=== PATIENT | male | born 1950 | race Caucasian/White ===

== ENCOUNTER → 2017-06-02 | Outpatient (CLI) | payer MEDICARE, OTHER ==
[~2017-06-02] MED LIST: ASPI81CH PO; ERGO400 PO; LOSA25 PO; SIMV10 PO; TADA10TA PO; TAMS.4ER PO; WARF7.5 PO
== END ==
LOC: PLD 07:07
DX: R31.0 Gross hematuria (principal)
CPT/HCPCS: 88108

== ENCOUNTER 2017-06-05 10:09 | Day surgery (SDC) | payer MEDICARE, OTHER ==
[~2017-06-05] VITALS: Ht 180.3 cm; Wt 98.4 kg
== END 2017-06-05 23:51 | disposition home or self-care (01) ==
LOC: ORSCMMR 10:09
PROVIDERS: Surgery
PROC: 0DJD8ZZ Inspection of Lower Intestinal Tract, Via Natural or Artificial Opening Endoscopic (ICD-10-PCS; principal; 2017-06-05 11:45)
DX: R19.5 Other fecal abnormalities (principal); K64.8 Other hemorrhoids; G47.33 Obstructive sleep apnea (adult) (pediatric); K57.30 Diverticulosis of large intestine without perforation or abscess without bleeding; I10 Essential (primary) hypertension; E78.5 Hyperlipidemia, unspecified; I35.0 Nonrheumatic aortic (valve) stenosis; Z79.01 Long term (current) use of anticoagulants; Z79.82 Long term (current) use of aspirin; Z79.899 Other long term (current) drug therapy
CPT/HCPCS: J2250; J7120

== ENCOUNTER 2018-06-13 14:47 | Emergency (ER) | payer MEDICARE, OTHER ==
[~2018-06-13] VITALS: Ht 180.3 cm; Wt 99.8 kg
[2018-06-13 15:16] LABS: BASOPHILS ABSOLUTE AUTO 0.05 K/mm3 (0.00-0.23); BASOPHILS PERCENT AUTO 1 % (0-2); EOSINOPHILS ABSOLUTE AUTO 0.17 K/mm3 (0.00-0.68); EOSINOPHILS PERCENT AUTO 3 % (0-6); Hematocrit 41.4 % (37.0-53.0); Hemoglobin 14.1 g/dL (13.5-17.5); IMMATURE GRAN ABSOLUTE AUTO 0.01 K/mm3 (0.00-0.10); IMMATURE GRAN PERCENT AUTO 0 % (0-1); LYMPHOCYTES ABSOLUTE AUTO 1.54 K/mm3 (0.84-5.20); LYMPHOCYTES PERCENT AUTO 25 % (21-46); MONOCYTES ABSOLUTE AUTO 0.35 K/mm3 (0.16-1.47); MONOCYTES PERCENT AUTO 6 % (4-13); Mean Corpuscular HGB 31.6 pg (26.0-34.0); Mean Corpuscular HGB Conc 34.1 g/dL (31.5-36.5); Mean Corpuscular Volume 93 fL (80-100); Mean Platelet Volume 11.3 fL (9.1-12.4); NEUTROPHILS ABSOLUTE AUTO 4.14 K/mm3 (1.96-9.15); NEUTROPHILS PERCENT AUTO 66 % (41-73); Platelet Count 155 K/mm3 (150-400); RDW Coefficient Variation 13.2 % (11.7-14.2); RDW Standard Deviation 45.3 fL (35.1-46.3); Red Blood Cell Count 4.46 M/mm3 (4.30-5.90); White Blood Cell Count 6.26 K/mm3 (4.00-11.30)
[2018-06-13] MEDS ORDERED: FINA5 PO (15:40)
[2018-06-13 15:41] LABS: Alanine Aminotransfer (ALT/SGP 19 U/L (12-78); Albumin, Blood 3.7 g/dL (3.4-5.0); Albumin/Globulin Ratio 1.2 (0.8-1.8); Alk Phos 62 U/L (50-136); Anion Gap 7 mmol/L (6-16); Aspartate Aminotrans (AST/SGOT 18 U/L (12-37); Bilirubin, Total 0.5 mg/dL (0.1-1.0); Blood Urea Nitrogen 14 mg/dL (8-24); Bun/Creatinine Ratio 15.6 (12.0-20.0); CO2, Blood 28 mmol/L (21-32); Calcium, Blood 8.3 mg/dL (8.5-10.1); Chloride, Blood 108 mmol/L (98-108); Glomerular Filtration Rate >60 (60-); Glucose, Blood 120 mg/dL (70-99); Potassium, Blood 3.8 mmol/L (3.5-5.5); Sodium, Blood 143 mmol/L (136-145); Total Protein, Blood 6.7 g/dL (6.4-8.2); Troponin I <0.015 ng/mL (0.000-0.040)
[2018-06-13] MEDS ORDERED: Protonix40 MG PO (17:40)
== END 2018-06-13 18:00 | disposition home or self-care (01) ==
LOC: ER 14:47
PROVIDERS: Physician Assistant
DX: R10.13 Epigastric pain (principal); Z79.82 Long term (current) use of aspirin; Z79.01 Long term (current) use of anticoagulants; Z79.899 Other long term (current) drug therapy; I10 Essential (primary) hypertension; E78.5 Hyperlipidemia, unspecified; Z87.891 Personal history of nicotine dependence
CPT/HCPCS: 36415; 71046; 80053; 84484; 85025; 93005; 93010; 96374; 96375; 96376; 99284-25; C9113; J0780; J1200; J2060; J2405

== ENCOUNTER 2018-06-17 10:03 | Emergency (ER) | payer MEDICARE, OTHER ==
[~2018-06-17] VITALS: Ht 180.3 cm; Wt 99.8 kg
[~2018-06-17 10:03] MED LIST changes: +FINA5 PO; +Protonix40 MG PO
[2018-06-17 10:37] LABS: BASOPHILS ABSOLUTE AUTO 0.05 K/mm3 (0.00-0.23); BASOPHILS PERCENT AUTO 0 % (0-2); EOSINOPHILS ABSOLUTE AUTO 0.22 K/mm3 (0.00-0.68); EOSINOPHILS PERCENT AUTO 2 % (0-6); Hematocrit 41.8 % (37.0-53.0); Hemoglobin 14.3 g/dL (13.5-17.5); IMMATURE GRAN ABSOLUTE AUTO 0.05 K/mm3 (0.00-0.10); IMMATURE GRAN PERCENT AUTO 0 % (0-1); LYMPHOCYTES ABSOLUTE AUTO 1.17 K/mm3 (0.84-5.20); LYMPHOCYTES PERCENT AUTO 10 % (21-46); MONOCYTES ABSOLUTE AUTO 1.51 K/mm3 (0.16-1.47); MONOCYTES PERCENT AUTO 12 % (4-13); Mean Corpuscular HGB 31.6 pg (26.0-34.0); Mean Corpuscular HGB Conc 34.2 g/dL (31.5-36.5); Mean Corpuscular Volume 93 fL (80-100); Mean Platelet Volume 11.5 fL (9.1-12.4); NEUTROPHILS ABSOLUTE AUTO 9.26 K/mm3 (1.96-9.15); NEUTROPHILS PERCENT AUTO 76 % (41-73); Platelet Count 176 K/mm3 (150-400); RDW Coefficient Variation 13.3 % (11.7-14.2); RDW Standard Deviation 45.2 fL (35.1-46.3); Red Blood Cell Count 4.52 M/mm3 (4.30-5.90); White Blood Cell Count 12.26 K/mm3 (4.00-11.30)
[2018-06-17 10:54] LABS: Alanine Aminotransfer (ALT/SGP 28 U/L (12-78); Albumin, Blood 3.3 g/dL (3.4-5.0); Albumin/Globulin Ratio 0.8 (0.8-1.8); Alk Phos 57 U/L (50-136); Anion Gap 9 mmol/L (6-16); Aspartate Aminotrans (AST/SGOT 15 U/L (12-37); Bilirubin, Total 0.8 mg/dL (0.1-1.0); Blood Urea Nitrogen 21 mg/dL (8-24); Bun/Creatinine Ratio 20.4 (12.0-20.0); CO2, Blood 24 mmol/L (21-32); Calcium, Blood 8.4 mg/dL (8.5-10.1); Chloride, Blood 101 mmol/L (98-108); Creatinine, Blood 1.03 mg/dL (0.60-1.20); Globulin, Blood 3.9 g/dL (2.2-4.0); Glomerular Filtration Rate >60 (60-); Glucose, Blood 107 mg/dL (70-99); Potassium, Blood 3.9 mmol/L (3.5-5.5); Sodium, Blood 134 mmol/L (136-145); Total Protein, Blood 7.2 g/dL (6.4-8.2)
== END 2018-06-17 13:00 | disposition short-term general hospital (02) ==
LOC: ER 10:03
PROVIDERS: Emergency Medicine
DX: I71.02 Dissection of abdominal aorta (principal); I10 Essential (primary) hypertension; E78.5 Hyperlipidemia, unspecified; Z87.891 Personal history of nicotine dependence; Z79.899 Other long term (current) drug therapy; Z79.82 Long term (current) use of aspirin; Z79.01 Long term (current) use of anticoagulants
CPT/HCPCS: 36415; 71275; 74177; 80053; 83690; 85025; 93005; 93010; 96361; 96365; 96375; 99285-25; J2405; J3010; J7030; Q9967

== ENCOUNTER 2018-07-14 09:18 | Emergency (ER) | payer MEDICARE, OTHER ==
[~2018-07-14] VITALS: Ht 180.3 cm; Wt 104.3 kg
[~2018-07-14 09:18] MED LIST changes: -AMLO10 PO; -Amox Tr-K Clv1 EAC2 PO; -CLOP75 PO; -ENOX100I SC; -HYDR100 PO; -Lasix40 MG PO; -MELA3 PO; -METO100ER PO; -OXYC5 PO; -TRAZ50 PO
[2018-07-14] MEDS ORDERED: HYDR100 PO (10:44)
[2018-07-14] MEDS ORDERED: METO100ER PO (10:45)
[2018-07-14] MEDS ORDERED: MELA3 PO (10:45)
[2018-07-14] MEDS ORDERED: AMLO10 PO (10:45)
[2018-07-14] MEDS ORDERED: OXYC5 PO (10:45)
[2018-07-14] MEDS ORDERED: Amox Tr-K Clv1 EAC2 PO (10:46)
[2018-07-14] MEDS ORDERED: TRAZ50 PO (10:46)
[2018-07-14] MEDS ORDERED: ENOX100I SC (10:47)
[2018-07-14] MEDS ORDERED: CLOP75 PO (10:47)
[2018-07-14 10:53] LABS: BASOPHILS ABSOLUTE AUTO 0.06 K/mm3 (0.00-0.23); BASOPHILS PERCENT AUTO 1 % (0-2); EOSINOPHILS ABSOLUTE AUTO 0.34 K/mm3 (0.00-0.68); EOSINOPHILS PERCENT AUTO 3 % (0-6); Hematocrit 27.5 % (37.0-53.0); Hemoglobin 9.1 g/dL (13.5-17.5); IMMATURE GRAN ABSOLUTE AUTO 0.17 K/mm3 (0.00-0.10); IMMATURE GRAN PERCENT AUTO 2 % (0-1); LYMPHOCYTES ABSOLUTE AUTO 1.06 K/mm3 (0.84-5.20); LYMPHOCYTES PERCENT AUTO 11 % (21-46); MONOCYTES ABSOLUTE AUTO 0.86 K/mm3 (0.16-1.47); MONOCYTES PERCENT AUTO 9 % (4-13); Mean Corpuscular HGB 30.6 pg (26.0-34.0); Mean Corpuscular HGB Conc 33.1 g/dL (31.5-36.5); Mean Corpuscular Volume 93 fL (80-100); Mean Platelet Volume 11.1 fL (9.1-12.4); NEUTROPHILS ABSOLUTE AUTO 7.64 K/mm3 (1.96-9.15); NEUTROPHILS PERCENT AUTO 75 % (41-73); Platelet Count 224 K/mm3 (150-400); RDW Coefficient Variation 13.7 % (11.7-14.2); RDW Standard Deviation 46.8 fL (35.1-46.3); Red Blood Cell Count 2.97 M/mm3 (4.30-5.90); White Blood Cell Count 10.13 K/mm3 (4.00-11.30)
[2018-07-14 11:09] LABS: International Normalized Ratio 2.17; Prothrombin Time Results 21.4 Sec (9.7-11.5)
[2018-07-14 11:25] LABS: Anion Gap 7 mmol/L (6-16); Blood Urea Nitrogen 21 mg/dL (8-24); Bun/Creatinine Ratio 16.9 (12.0-20.0); CO2, Blood 23 mmol/L (21-32); Calcium, Blood 8.2 mg/dL (8.5-10.1); Chloride, Blood 110 mmol/L (98-108); Creatinine, Blood 1.24 mg/dL (0.60-1.20); Glomerular Filtration Rate >60 (60-); Glucose, Blood 102 mg/dL (70-99); Magnesium, Blood 2.5 mg/dL (1.6-2.4); Potassium, Blood 4.2 mmol/L (3.5-5.5); Sodium, Blood 140 mmol/L (136-145)
[2018-07-14] MEDS ORDERED: Lasix40 MG PO (11:36)
== END 2018-07-14 12:16 | disposition home or self-care (01) ==
LOC: ER 09:18
PROVIDERS: Emergency Medicine
DX: I11.0 Hypertensive heart disease with heart failure (principal); I50.9 Heart failure, unspecified; E78.5 Hyperlipidemia, unspecified; Z95.2 Presence of prosthetic heart valve; Z98.890 Other specified postprocedural states; Z79.82 Long term (current) use of aspirin; Z79.01 Long term (current) use of anticoagulants; Z79.899 Other long term (current) drug therapy
CPT/HCPCS: 36415; 71046; 80048; 83735; 85025; 85610; 85730; 96374; 99285-25; J1940

== ENCOUNTER → 2018-07-14 | Outpatient (CLI) | payer MEDICARE, OTHER ==
[~2018-07-14] MED LIST changes: +AMLO10 PO; +Amox Tr-K Clv1 EAC2 PO; +CLOP75 PO; +ENOX100I SC; +HYDR100 PO; +Lasix40 MG PO; +MELA3 PO; +METO100ER PO; +OXYC5 PO; +TRAZ50 PO
[2018-07-14 18:19] LABS: Percent Saturation 16.6 % (20.0-50.0)
== END | disposition home or self-care (01) ==
LOC: LAB 17:33 → LAB SHORT 17:33
DX: D64.9 Anemia, unspecified (principal)
CPT/HCPCS: 82728; 83540; 83550

== ENCOUNTER 2019-01-28 12:57 | Inpatient (IN) | payer MEDICARE, OTHER ==
[~2019-01-28] VITALS: Ht 180.3 cm; Wt 109.2 kg
[~2019-01-28 12:57] MED LIST changes: +Amox Tr-K Clv1 EAC2 PO; +ENOX100I SC; -FINA5 PO; +Lasix40 MG PO; +MELA3 PO; +OXYC5 PO; +TRAZ50 PO; -WARF7.5 PO
[2019-01-28 13:56] LABS: International Normalized Ratio 2.32; Prothrombin Time Results 22.8 Sec (9.7-11.5)
[2019-01-28 14:01] LABS: BASOPHILS ABSOLUTE AUTO 0.04 K/mm3 (0.00-0.23); BASOPHILS PERCENT AUTO 0 % (0-2); EOSINOPHILS ABSOLUTE AUTO 0.04 K/mm3 (0.00-0.68); EOSINOPHILS PERCENT AUTO 0 % (0-6); Hematocrit 32.2 % (37.0-53.0); IMMATURE GRAN ABSOLUTE AUTO 0.15 K/mm3 (0.00-0.10); IMMATURE GRAN PERCENT AUTO 1 % (0-1); LYMPHOCYTES ABSOLUTE AUTO 0.76 K/mm3 (0.84-5.20); LYMPHOCYTES PERCENT AUTO 4 % (21-46); MONOCYTES ABSOLUTE AUTO 1.75 K/mm3 (0.16-1.47); MONOCYTES PERCENT AUTO 9 % (4-13); Mean Corpuscular HGB 31.2 pg (26.0-34.0); Mean Corpuscular HGB Conc 34.2 g/dL (31.5-36.5); Mean Corpuscular Volume 91 fL (80-100); NEUTROPHILS ABSOLUTE AUTO 17.35 K/mm3 (1.96-9.15); NEUTROPHILS PERCENT AUTO 86 % (41-73); RDW Coefficient Variation 14.5 % (11.7-14.2); RDW Standard Deviation 48.3 fL (35.1-46.3); Red Blood Cell Count 3.53 M/mm3 (4.30-5.90); White Blood Cell Count 20.09 K/mm3 (4.00-11.30)
[2019-01-28 14:03] LABS: Albumin, Blood 3.6 g/dL (3.4-5.0); Albumin/Globulin Ratio 1.1 (0.8-1.8); Calcium, Blood 8.7 mg/dL (8.5-10.1); Creatinine, Blood 1.27 mg/dL (0.60-1.20); Globulin, Blood 3.3 g/dL (2.2-4.0); Potassium, Blood 4.1 mmol/L (3.5-5.5); Total Protein, Blood 6.9 g/dL (6.4-8.2)
[2019-01-28 14:25] LABS: Troponin I 13.3 ng/mL (0.000-0.040)
[2019-01-28 14:29] LABS: Platelet Count 88 K/mm3 (150-400)
[2019-01-28] MEDS ORDERED: WARF7.5 PO (15:12)
[2019-01-28] MEDS ORDERED: METO50ER PO (15:13)
[2019-01-28] MEDS ORDERED: Flomax0.4 MG PO (15:14)
[2019-01-28] MEDS ORDERED: LOSARTAN POTASS50 MG PO (15:15)
[2019-01-28] MEDS ORDERED: FUROSEMIDE20 MG PO (15:15)
[2019-01-28] MEDS ORDERED: ATORVASTATIN CA20 MG PO (15:16)
[2019-01-28] MEDS ORDERED: HYDR100 PO (15:18)
[2019-01-28] MEDS ORDERED: FINA5 PO (15:18)
[2019-01-28] MEDS ORDERED: AMLO10 PO (15:19)
[2019-01-28] MEDS ORDERED: CLOP75 PO (15:19)
[2019-01-28] MEDS ORDERED: PANT40 PO (15:21)
[2019-01-28 20:26] LABS: Source, Urine Catheter
[2019-01-28 20:29] LABS: Bilirubin, Urine Neg (Neg); Blood, Urine Neg (Neg); Glucose Qualitative, Urine Neg (Neg); Ketones, Urine Neg (Neg); Leukocyte Esterase, Urine 1+ (Neg); Nitrite, Urine Neg (Neg); Protein, Urine 2+ (Neg); Urobilinogen, Urine NORM (Normal)
[2019-01-28 20:34] LABS: Influenza A Negative (NEGATIVE); Influenza B Negative (NEGATIVE)
[2019-01-28 20:34] LABS: Appearance, Urine Clear (Clear); Color, Urine Yellow (P-Yellow)
[2019-01-28 20:35] LABS: Bacteria Mod /hpf; Mucus Light (0-Heavy); Red Blood Cells, Urine Not Seen /hpf (0-2); Squamous Epithelial Cells Few /hpf (Few); White Blood Cells, Urine 0-2 /hpf (0-5)
[2019-01-28 22:55] LABS: Troponin I 7.83 ng/mL (0.000-0.040)
--- NOTE | 2019-01-28 23:30 | NUR ---
PT ARRIVED ON UNIT VIA STRETCHER FROM ER; ASSUMED CARE FROM SARI NORMAN. PT ADMITTED TO UNIT FOR POSSIBLE ENDOCARDITIS WITH UNKNOWN ORIGIN/SOURCE OF INFECTION. 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 PT IS ALERT AND ORIENTED; ABLE TO MAKE NEEDS KNOWN. DENIES ANY PAIN; HOWEVER, PT NOTED TO BE SOB WITH INSPIRATORY WHEEZES NOTED AFTER TRANSFER FROM STRETCHER TO BED. BNP NOTED TO BE ELEVATED; THEREFORE, IV FLUIDS HELD AT THIS TIME. WILL PLACE CALL TO DR. VALLE. 2L VIA DC AT THIS TIME; DENIES OXYGEN USE AT HOME. STATES PT DID A SLEEP STUDY; HOWEVER, WAS UNABLE TO WEAR MASK D/T DEVIATED SEPTUM. THEREFORE, SHE STATES THEY ARE TRYING TO WORK WITH [facility] TO SEE ABOUT OTHER OPTIONS FOR PT'S ERVIN. PT IS NOTED TO BE BRADYCARDIC WITH INVERTED T WAVES; CALL PLACED TO DR. AVILEZ IN REGARDS TO INVERTED T WAVES BEING NEW AND NOT NOTED ON EKG THAT WAS OBTAINED IN ER EARLIER IN THE DAY; AWAITING CALL BACK. PT IS NOTED TO HAVE A SYSTOLIC MURMUR WITH A CLICK; BEST HEARD OVER 2ND RIGHT INTERCOSTAL SPACE. HR 50'S. ABDOMEN IS ROUND AND DISTENDED, BUT NORMAL FOR PT; ACTIVE BTX4. DENIES ANY DIARRHEA OR CONSTIPATION. CONTINENT OF BOTH BOWEL AND BLADDER. NO EDEMA NOTED. CALL LIGHT LEFT WITHIN REACH. WILL CONTINUE TO MONITOR FOR SIGNIFICANT CHANGES AND REPORT TO PHYSICIAN ACCORDINGLY.
--- NOTE | 2019-01-28 23:37 | NUR ---
SPOKE WITH DR. VALLE IN REGARDS TO CRITICAL LAB RESULT, ELEVATED BNP WITH PT'S WHEEZING AND SOB. ORDERS TO HOLD NS AT 75MLS/HR.
--- NOTE | 2019-01-29 00:47 | NUR ---
DR. AVILEZ CALLED BACK IN REGARDS TO INVERTED T WAVES. PT IS ASYMPTOMATIC AT THIS TIME; NEW ORDERS TO MAKE NPO AFTER MIDNIGHT AND SHE WILL BE BY TO SEE HIM IN THE MORNING.
--- NOTE | 2019-01-29 05:56 | NUR ---
END OF SHIFT SUMMARY PT HAS SLEPT MOST OF NIGHT. VERY PLEASANT AND COOPERATIVE WITH CARE. DENIED ANY CHEST PAIN, SOB, WELL ANY N/V T/O NIGHT. NSR WITH T WAVE INVERSION NOTED TO RHYTHM STRIP; DR. AVILEZ AWARE, SEE EARLIER NOTE. LUNG SOUNDS CLEAR/DIMINISHED T/O WITH ONE EPISODE OF INSPIRATORY WHEEZING UPON ASSUMPTION OF CARE WHEN PT BECAME SOB TRANSFERRING TO BED. PT HAS REMAINED SL ALL SHIFT WITH VANCO ADMINISTERED PER ORDERS. CONTINENT OF BLADDER; VOIDING ADEQUATELY IN URINAL. VITAL SIGNS HAVE REMAINED STABLE T/O SHIFT; TEMPERATURE MAX OF 100.9 ORALLY PT IS DIAPHORETIC TO FOREHEAD; PT HAS BEEN LABILE WITH TEMPERATURES T/O SHIFT, SEE DOCUMENTATION. CALL LIGHT LEFT WITHIN REACH; PT ABLE TO MAKE HIS NEEDS KNOWN. WILL CONTINUE TO MONITOR UNTIL REPORT IS HANDED OFF TO ONCOMING RN.
[2019-01-29 06:35] LABS: BASOPHILS ABSOLUTE AUTO 0.05 K/mm3 (0.00-0.23); BASOPHILS PERCENT AUTO 0 % (0-2); EOSINOPHILS ABSOLUTE AUTO 0.04 K/mm3 (0.00-0.68); EOSINOPHILS PERCENT AUTO 0 % (0-6); Hematocrit 31.6 % (37.0-53.0); Hemoglobin 10.7 g/dL (13.5-17.5); IMMATURE GRAN ABSOLUTE AUTO 0.09 K/mm3 (0.00-0.10); IMMATURE GRAN PERCENT AUTO 0 % (0-1); LYMPHOCYTES PERCENT AUTO 5 % (21-46); MONOCYTES ABSOLUTE AUTO 1.95 K/mm3 (0.16-1.47); MONOCYTES PERCENT AUTO 10 % (4-13); Mean Corpuscular HGB 30.6 pg (26.0-34.0); Mean Corpuscular HGB Conc 33.9 g/dL (31.5-36.5); Mean Corpuscular Volume 90 fL (80-100); Mean Platelet Volume 11.3 fL (9.1-12.4); NEUTROPHILS ABSOLUTE AUTO 17.07 K/mm3 (1.96-9.15); NEUTROPHILS PERCENT AUTO 84 % (41-73); Platelet Count 73 K/mm3 (150-400); RDW Coefficient Variation 14.6 % (11.7-14.2); RDW Standard Deviation 48.2 fL (35.1-46.3)
[2019-01-29 07:18] LABS: Alanine Aminotransfer (ALT/SGP 22 U/L (12-78); Alk Phos 53 U/L (50-136); Anion Gap 9 mmol/L (6-16); Aspartate Aminotrans (AST/SGOT 36 U/L (12-37); Bilirubin, Total 0.7 mg/dL (0.1-1.0); Blood Urea Nitrogen 31 mg/dL (8-24); Bun/Creatinine Ratio 26.1 (12.0-20.0); CO2, Blood 22 mmol/L (21-32); Calcium, Blood 8.2 mg/dL (8.5-10.1); Chloride, Blood 108 mmol/L (98-108); Creatinine, Blood 1.19 mg/dL (0.60-1.20); Globulin, Blood 3.1 g/dL (2.2-4.0); Glomerular Filtration Rate >60 (60-); Glucose, Blood 113 mg/dL (70-99); Potassium, Blood 3.9 mmol/L (3.5-5.5); Sodium, Blood 139 mmol/L (136-145); Total Protein, Blood 6.1 g/dL (6.4-8.2)
[2019-01-29 07:23] LABS: Creatine Kinase MB 7.3 ng/mL (0.0-3.6); Creatine Kinase MB Index 2.4 (0.0-4.0)
[2019-01-29 07:36] LABS: Troponin I 6.8 ng/mL (0.000-0.040)
[2019-01-29 07:56] LABS: International Normalized Ratio 2.4; Prothrombin Time Results 23.5 Sec (9.7-11.5)
--- NOTE | 2019-01-29 08:10 | NUR ---
ASSUMED CARE: RECEIVED REPORT FROM NOC RN. PT AWAKE UPON ENTERING THE ROOM. PT IS BREATHING APPEARS TO BE HEARD FROM ACROSS THE ROOM SOUNDING VERY TIGHT AND APPEARS WORK OF BREATHING TO BE ELAVATED. PT DENEIS FEELING DIFFICULTY BREATHING. LUNG SOUNDS ARE VERY COURSE T/O ON THE LEFT SIDE. PT AT FIRST DENIED ANY CHEST PAIN OR PRESSURE UPON FURTHER ASSESSMENT PT C/O FEELING OF TIGHTNESS. EDUCATED PT ON CALLING IF TIGHTNESS INCREASES, CHANGES OR RADIATES. PT DENIES ANY SWELLING IN BLE, NONE NOTED ON ASSESSMENT. WILL CONTINUE TO MONITOR AND ASSESS FURTHER. CALL LIGHT IN REACH. BED IN LOWEST POSSITION. PT NPO AT THIS TIME.
--- NOTE | 2019-01-29 08:47 | NUR ---
DR AVILEZ IN ROOM: IN ROOM ASSESSING PT AT THIS BIRDIE. UPDATE ON PT CARE. D/T HIGH INR PT WILL NOT BE GOING TO THE [facility] TODAY, BUT WILL BEING DOING A SHAHZAD AT THE BEDSIDE.
--- NOTE | 2019-01-29 11:00 | NUR ---
SHAHZAD AT BEDSIDE: PHYSICIANS ASSISTANT ARIVED TO THE ROOM AND PREPARED THE PT FOR SHAHZAD. STARTED NS @ TKO IN ORDER TO HAVE CLOSER ACCESS FOR IV MEDICATION ADMINISTRATION. 2 VIALS @ 100MCG EA OF FENTANYL AND 3 VIALS @ 2MG OF VERSED WAS PULLED FROM PIXIS PRIOR TO PROCEDURE IN PREPARATION OF PROCEDURE. RT CALLED TO THE ROOM FOR STANDBY. PT VSS PRIOR TO BEGINNING PROCEDURE. 1019: DR AVILEZ ARIVED TO THE ROOM 1021: TIME OUT DONE BY THIS RN. 1023: MEDICATIONS ADMINISTERED 2MG OF VERSED AND 50MCG OF FENTANYL PER DR AVILEZ VERBAL ORDER. ADMINISTERED WITH REPEAT BACK COMMUNICATION. FLUSHED WITH 10ML NS 1026: DR INSERTED SCOPE 1038: SCOPE WITHDRAWN 1042: PT AROUSABLE AND ANSWERING QUESTIONS. AFTER PROCEDURE FENTANYL 150MCG WASTED WITH MONE BARGER RN 3 VIALS RETURNED VIA PIXIS, BUT 1 VIAL 2MG WAS ADMINISTERED NOTED ABOVE. 2 VIALS WERE PLACED IN THE RETURN BIN OF THE PIXIS. WITNESSED BY MONE BARGER RN AND NGOC BRITTON RN.
[2019-01-29 15:02] LABS: Creatine Kinase MB 6.3 ng/mL (0.0-3.6); Creatine Kinase MB Index 2.6 (0.0-4.0)
[2019-01-29 15:31] LABS: Troponin I 3.74 ng/mL (0.000-0.040)
--- NOTE | 2019-01-29 18:33 | NUR ---
SHIFT SUMMARY: PT TRANSFERED TO PCU THIS SHIFT. A/O T/O THE SHIFT NO C/O PAIN, TIGHTNESS OR PRESSURE SINCE THIS MORNING. NUMEROUS FAMILY HAS BEEN IN TO SEE PT. PT HAS BEEN SLEEPING OFF AND ON T/O THE DAY. VSS. PT TRANSFERED TO THE PCU BED BY STANDING WITH SBA. NO S/S OF DISTRESS WITH TRANSFER. WILL CONTINUE TO MONITOR AND REPORT TO ONCOMING RN. CALL LIGHT IN REACH. BED IN LOWEST POSSITION.
--- NOTE | 2019-01-29 19:20 | NUR ---
ASSUMED CARE OF PT, BEDSIDE REPORT RECEIVED. PT IS RESTING QUIETLY RECLINING IN BED AND VISITING WITH VISITOR AT BEDSIDE, DENIES NEEDS AT THIS TIME.
[2019-01-30 05:10] LABS: BASOPHILS ABSOLUTE AUTO 0.05 K/mm3 (0.00-0.23); BASOPHILS PERCENT AUTO 0 % (0-2); EOSINOPHILS ABSOLUTE AUTO 0.02 K/mm3 (0.00-0.68); EOSINOPHILS PERCENT AUTO 0 % (0-6); Hematocrit 31.6 % (37.0-53.0); Hemoglobin 10.2 g/dL (13.5-17.5); IMMATURE GRAN ABSOLUTE AUTO 0.06 K/mm3 (0.00-0.10); IMMATURE GRAN PERCENT AUTO 0 % (0-1); LYMPHOCYTES ABSOLUTE AUTO 1.18 K/mm3 (0.84-5.20); LYMPHOCYTES PERCENT AUTO 8 % (21-46); MONOCYTES ABSOLUTE AUTO 1.48 K/mm3 (0.16-1.47); MONOCYTES PERCENT AUTO 10 % (4-13); Mean Corpuscular HGB 30.4 pg (26.0-34.0); Mean Corpuscular HGB Conc 32.3 g/dL (31.5-36.5); Mean Platelet Volume 12.5 fL (9.1-12.4); NEUTROPHILS ABSOLUTE AUTO 11.89 K/mm3 (1.96-9.15); NEUTROPHILS PERCENT AUTO 81 % (41-73); Platelet Count 68 K/mm3 (150-400); RDW Coefficient Variation 14.5 % (11.7-14.2); RDW Standard Deviation 50.6 fL (35.1-46.3); Red Blood Cell Count 3.36 M/mm3 (4.30-5.90); White Blood Cell Count 14.68 K/mm3 (4.00-11.30)
[2019-01-30 05:22] LABS: International Normalized Ratio 3.06; Prothrombin Time Results 29.3 Sec (9.7-11.5)
[2019-01-30 05:24] LABS: C-REACTIVE PROTEIN, EXT RANGE 18.5 mg/dL (0.000-0.300)
[2019-01-30 05:25] LABS: Albumin, Blood 2.7 g/dL (3.4-5.0); Albumin/Globulin Ratio 0.9 (0.8-1.8); Bilirubin, Total 0.4 mg/dL (0.1-1.0); Bun/Creatinine Ratio 22.8 (12.0-20.0); Creatinine, Blood 1.62 mg/dL (0.60-1.20); Globulin, Blood 3.1 g/dL (2.2-4.0); Potassium, Blood 4.3 mmol/L (3.5-5.5); Total Protein, Blood 5.8 g/dL (6.4-8.2)
[2019-01-30 05:32] LABS: Mean Corpuscular Volume 94 fL (80-100)
--- NOTE | 2019-01-30 06:22 | NUR ---
PT RESTS QUIETLY THROUGHOUT SHIFT, REPORTS THAT HE IS SLEEPING WELL WHEN AWAKENED FOR VITALS AND ASSESSMENTS, ELEVATED TEMP WAS NOTED NEAR MIDNOC, TYLENOL ADMIN WITH TEMP IMPROVED TO 99. ASSESSMENT REMAINS UNCHANGED THROUGHOUT SHIFT. HAS DENIED CP/PRESSURE, SOB/DYSPNEA, DIZZINESS/VERTIGO, AND NUMBNESS/TINGLING THROUGHOUT NOC.
[2019-01-30 16:03] LABS: Vancomycin, Trough 22.8 ug/mL (5.0-10.0)
[2019-01-31 05:26] LABS: BASOPHILS ABSOLUTE AUTO 0.04 K/mm3 (0.00-0.23); BASOPHILS PERCENT AUTO 0 % (0-2); EOSINOPHILS ABSOLUTE AUTO 0.06 K/mm3 (0.00-0.68); EOSINOPHILS PERCENT AUTO 1 % (0-6); Hematocrit 29.4 % (37.0-53.0); Hemoglobin 9.7 g/dL (13.5-17.5); IMMATURE GRAN ABSOLUTE AUTO 0.05 K/mm3 (0.00-0.10); IMMATURE GRAN PERCENT AUTO 1 % (0-1); LYMPHOCYTES PERCENT AUTO 9 % (21-46); MONOCYTES ABSOLUTE AUTO 1.27 K/mm3 (0.16-1.47); MONOCYTES PERCENT AUTO 12 % (4-13); Mean Corpuscular HGB 30.7 pg (26.0-34.0); Mean Corpuscular Volume 93 fL (80-100); Mean Platelet Volume 12.5 fL (9.1-12.4); NEUTROPHILS ABSOLUTE AUTO 8.11 K/mm3 (1.96-9.15); NEUTROPHILS PERCENT AUTO 78 % (41-73); Platelet Count 85 K/mm3 (150-400); RDW Coefficient Variation 14.6 % (11.7-14.2); RDW Standard Deviation 49.8 fL (35.1-46.3); Red Blood Cell Count 3.16 M/mm3 (4.30-5.90); White Blood Cell Count 10.43 K/mm3 (4.00-11.30)
[2019-01-31 05:38] LABS: Prothrombin Time Results 19.9 Sec (9.7-11.5)
[2019-01-31 05:49] LABS: Calcium, Blood 7.9 mg/dL (8.5-10.1); Creatinine, Blood 1.41 mg/dL (0.60-1.20); Magnesium, Blood 2.4 mg/dL (1.6-2.4)
[2019-01-31 06:30] LABS: Alanine Aminotransfer (ALT/SGP 18 U/L (12-78); Aspartate Aminotrans (AST/SGOT 15 U/L (12-37)
--- NOTE | 2019-01-31 06:31 | NUR ---
SHIFT SUMMARY . EACH TIME OOB TO VOID DENIES SOB . NO ACUTE SOB NOTED. SAT IN RECLINER CHAIR ABOUT 3 HR TALKING W/ FAMILY. DENIES ANY CHEST DISCOMFORT. O2 NEEDED AT 4L LT LUNG LOW AIR EXCHANGE . A FEW COARSE LUNG SOUNDS RT MOSTLY CLEARING W/ COUGH. EXPRESSED CONCERNS AND EXPRESSED UNDERSTANDING OF MED REVIEW AND CURRENT CONDITION. AFEBRILE BUT ALL ORAL TEMPS. SLEPT VERY WELL ALL NOC. DENIES ANY DISCOMFORT. SR. LG HS SNACK. AND NO GI DISTRESS.
--- NOTE | 2019-01-31 10:48 | NUR ---
DR LOYA CONSULT ORDER TO CONSULT DR LOYA RECEIVED. CALLED CLINIC MAKE THE REFERRAL WAS TOLD THAT DR LOYA IS ON VACATION FOR [address] WATERS AND LET HIM KNOW. DR WATERS CANCELEED THE DR LOYA CONSULT. CONTINUE POT.
--- NOTE | 2019-01-31 11:00 | NUR ---
Advance directive education attempted/ Spiritual care visit conducted. Upon receiving a refferral from an admit trigger, I visited patient. He immediately stated that he has no interest in advance directive education and that he and his and family have "all these things worked out." Spiritual care connection is easily made. Patient openly shared about his willem. He has a deep long standing Buddhism willem but has not ever been a big jainism attender. Patient states that he is not opposed to jainism but it is just not his thing. Patient admitted to having a struggle at times when he thinks about his health and his longevity. I provided pastoral financial services counselor and a calming presence. Patient welcomed prayer and stated apprectiation for the prayer. Patient showed signs of reduced stress
--- NOTE | 2019-01-31 15:23 | NUR ---
DISCHARGE PT IV REMOVED. POWER GLIDE REMOVED. PRESSURE DRESSING APPLIED TO EACH SITE. NO BLEDDING NOTED. DISCHARGE ORDERS FAXED TO [facility] PER REQUEST. PT DISCHARGED WITH FAMILY. CONTINUE POT.
[2019-01-31 15:24] LABS: Vancomycin, Trough 17.9 ug/mL (5.0-10.0)
--- NOTE | 2019-01-31 20:00 | NUR ---
CARE ASSUMPTION PT A&O X4, PLEASANT AND COOPERATIVE. FAMILY AT BEDSIDE. VSS. PT DENIES PAIN/DISCOMFORT. WILL CONTINUE TO MONITOR AND PROVIDE CARE.
[2019-02-01 03:54] LABS: BASOPHILS ABSOLUTE AUTO 0.04 K/mm3 (0.00-0.23); BASOPHILS PERCENT AUTO 0 % (0-2); EOSINOPHILS ABSOLUTE AUTO 0.08 K/mm3 (0.00-0.68); EOSINOPHILS PERCENT AUTO 1 % (0-6); Hematocrit 29.1 % (37.0-53.0); Hemoglobin 9.6 g/dL (13.5-17.5); IMMATURE GRAN ABSOLUTE AUTO 0.05 K/mm3 (0.00-0.10); IMMATURE GRAN PERCENT AUTO 1 % (0-1); LYMPHOCYTES ABSOLUTE AUTO 0.74 K/mm3 (0.84-5.20); LYMPHOCYTES PERCENT AUTO 8 % (21-46); MONOCYTES ABSOLUTE AUTO 1.17 K/mm3 (0.16-1.47); MONOCYTES PERCENT AUTO 12 % (4-13); Mean Corpuscular HGB 29.5 pg (26.0-34.0); Mean Platelet Volume 11.7 fL (9.1-12.4); NEUTROPHILS ABSOLUTE AUTO 7.32 K/mm3 (1.96-9.15); NEUTROPHILS PERCENT AUTO 78 % (41-73); Platelet Count 95 K/mm3 (150-400); RDW Coefficient Variation 14.5 % (11.7-14.2); RDW Standard Deviation 47.3 fL (35.1-46.3); Red Blood Cell Count 3.25 M/mm3 (4.30-5.90)
[2019-02-01 04:00] LABS: Mean Corpuscular Volume 90 fL (80-100)
[2019-02-01 04:04] LABS: International Normalized Ratio 1.57
[2019-02-01 04:15] LABS: C-REACTIVE PROTEIN, EXT RANGE 14.8 mg/dL (0.000-0.300)
[2019-02-01 04:16] LABS: Bun/Creatinine Ratio 23.4 (12.0-20.0); Creatinine, Blood 1.41 mg/dL (0.60-1.20); Potassium, Blood 4.1 mmol/L (3.5-5.5)
--- NOTE | 2019-02-01 04:41 | NUR ---
SHIFT SUMMARY PT A&O X4. VSS. MONITOR SHOWS SB/NSR, HR 50-70. LUNG SOUNDS DIM. SPO2 > 92% ON 4L NC. PT DENIES PAIN/DISCOMFORT. NO EVENTS CHANGES/EVENTS OVERNIGHT. WILL CONTINUE TO MONITOR AND PROVIDE CARE UNTIL REPORT OFF TO DAY SHIFT RN.
--- NOTE | 2019-02-01 16:40 | NUR ---
RECIEVED CALL FROM PCP OFFICE, TENATIVE PLAN IS FOR D/C IN ROUG[place]Y 48 HOURS AND IT IS NOTED THAT PT NEEDS TO GO HOME WITH CPAP, PT HAD SLEEP STUDY 2 MONTHS AGO WITH NO FOLLOW THROUGH. ONCE RECIEVING SLEEP STUDY IT WAS NOTED THAT PT DIDN'T COMPLETE TITRATION OF CPAP WITH STUDY. PER DR. NARAYAN OFFICE THEY WERE TOLD BY SLEEP LAB NOT TO DO AUTO SETTINGS. I CALLED DR. WATERS TO DISCUSS THIS WITH HIM AND HE PLACED A CONSULT IN TO DR. BULL. I SPOKE WITH DR. BULL WHO GAVE ME A VERBAL FOR A SLEEP STUDY TONIGHT AND CPAP ORDER FOR 5-20 AUTO WITH A 2L BLEED IN TO BE RUN ON THE SLEEP STUDY.
--- NOTE | 2019-02-01 19:29 | NUR ---
SHIFT SUMMARY PT A&Ox4. CALM AND COOPERATIVE WITH CARE. PT RESTING IN BED DURING SHIFT. UP TO CHAIR IND. PT SOB WITH EXERTION AND AT TIMES AT REST. PT ON 4L P2 VIA NC, LS DIM. PT DENIES PAIN AND NAUSEA. PT RECEIVING IV ANTIBIOTICS AND FLUID BOLUS. PT STARTED ON HEPARIN GTT. PT RECEIVING PO COUMADIN FOR MECH AORTIC VALVE. PER TELE SR 60'S, CLICK PRESENT. VSS. NO OTHER ACUTE CHANGES NOTED DURING SHIFT. REPORT GIVEN TO ONCOMING RN.
--- NOTE | 2019-02-02 05:03 | NUR ---
SHIFT SUMMARY PT SLEEPING IN ROOM COMFORTABLY AT THIS TIME. NO ACTE CHANGES IN STATUS T/O NIGHT. PT SLEPT WELL OFF AND ON DURING SLEEP STUDY. PT WOKE ONCE ASKING FOR RT TO ADJUST MASK, THEN SLEPT WELL FOR SEVERAL HOURS. RESP EVEN UNLABORED ON CPAP W/ 2L BLEED IN SATS 96%. DENIED CP, OR SOB. DENIES OTHER NEEDS. [facility]
[2019-02-02 05:53] LABS: BASOPHILS ABSOLUTE AUTO 0.05 K/mm3 (0.00-0.23); BASOPHILS PERCENT AUTO 1 % (0-2); EOSINOPHILS ABSOLUTE AUTO 0.23 K/mm3 (0.00-0.68); EOSINOPHILS PERCENT AUTO 3 % (0-6); Hematocrit 29.4 % (37.0-53.0); Hemoglobin 9.5 g/dL (13.5-17.5); IMMATURE GRAN ABSOLUTE AUTO 0.05 K/mm3 (0.00-0.10); IMMATURE GRAN PERCENT AUTO 1 % (0-1); LYMPHOCYTES ABSOLUTE AUTO 0.92 K/mm3 (0.84-5.20); LYMPHOCYTES PERCENT AUTO 10 % (21-46); MONOCYTES ABSOLUTE AUTO 1.18 K/mm3 (0.16-1.47); MONOCYTES PERCENT AUTO 13 % (4-13); Mean Corpuscular HGB 30.3 pg (26.0-34.0); Mean Corpuscular HGB Conc 32.3 g/dL (31.5-36.5); Mean Platelet Volume 11.1 fL (9.1-12.4); NEUTROPHILS ABSOLUTE AUTO 6.94 K/mm3 (1.96-9.15); NEUTROPHILS PERCENT AUTO 74 % (41-73); Platelet Count 116 K/mm3 (150-400); RDW Coefficient Variation 14.7 % (11.7-14.2); RDW Standard Deviation 50.4 fL (35.1-46.3); Red Blood Cell Count 3.14 M/mm3 (4.30-5.90); White Blood Cell Count 9.37 K/mm3 (4.00-11.30)
[2019-02-02 05:54] LABS: Mean Corpuscular Volume 94 fL (80-100)
[2019-02-02 06:07] LABS: International Normalized Ratio 1.67; Prothrombin Time Results 16.9 Sec (9.7-11.5)
[2019-02-02 06:09] LABS: Bun/Creatinine Ratio 19.6 (12.0-20.0); Calcium, Blood 7.8 mg/dL (8.5-10.1); Creatinine, Blood 1.38 mg/dL (0.60-1.20); Magnesium, Blood 2.4 mg/dL (1.6-2.4); Potassium, Blood 4.2 mmol/L (3.5-5.5)
--- NOTE | 2019-02-02 16:13 | NUR ---
[facility] CARE VISIT: PT SITTING IN CHAIR, ALERT, ORIENTED AND VISITING WITH A FAMILY MEMBER UPON ENTERING THE ROOM. PT REPORTS HE IS FEELING MUCH BETTER AND LOOKING FORWARD TO GOING HOME. HE IS DISPLAYING A BRIGHT AFFECT AND IS WELCOMING OF CONVER- SATION. HE DESCRIBES HIS LIFE "ACTIVE, FULL OF MANY LOVING FAMILY MEMBERS" AND "ENJOYS A GREAT QUALITY OF LIFE". AT THIS TIME HE WOULD LIKE ALL MEASURES EMPLOYED TO PROLONG/SAVE HIS LIFE. HE STATES HE AND HIS , WHO HE NAMES HIS SURROGATE MEDICAL DECISION MAKER HAVE SPOKEN MANY TIMES RE: IF HIS QUALITY OF LIFE WERE POOR AND HE WAS NOT ABLE TO ENJOY WHAT HE DOES NOW THEN HE MAY OPT FOR NO PROLONGATION WITH CPR OR INTUBATION. WE TALKED ABOUT HIS VALVE REPLACEMENT SURGERY PREVIOUSLY. HE HAS NOT PARTICIPATED IN CARDIAC REHAB PREVIOUSLY BUT EXPRESSED INTEREST. I ENCOURAGED HIM TO TALK TO HIS RELIGIOUS LEADER ABOUT IT IN HIS FOLLOW UP VISIT AFTER HIS IV ANTIBIOTIC REGIME IS COMPLETED. WRITTEN AND VERBAL INFORMATION ON CARDIAC REHAB GIVEN TO PT. PT'S PREVIOUS AORTIC VALVE REPLACEMENT HAS DEVELOPED AN INFECTION. HIS EF ON RECENT ECHO WAS 35-40%. PT WAS ADMITTED WITH SEPSIS AND ENDOCARDITIS OF PROSTHETIC VALVE. HE HAS PMH OF VALVULAR HEART DISEASE, CHF, ERVIN WITH CPAP USE, ACUTE KIDNEY INJURY, CHRONIC ANTICOAGULATION THERAPY. PT WAS ASSURED THAT HIS CURRENT ORDERS FOR FULL CODE STATUS ARE IN AGREEMENT WITH HIS WISHES. HE WAS ABLE TO DESCRIBE CIRCUMSTANCES UNDER WHICH HE WOULD WANT TO CHANGE HIS CODE STATUS AND THE FACT THAT HIS KNOWS HIM WELL AND THEY HAVE SPOKEN OPENLY ABOUT THEIR WISHES, MEDICAL VALUES AND DECISIONS. PT KNOWS THAT ANY FURTHER HEART SURGERY WOULD BE A LAST RESORT AND WOULD BE RISKY PER HIS CONVERSATIONS WITH LOCAL DRS AND HEART SURGEON IN THE PAST. HE REPORTS A SATISFACTORY LEVEL OF COMFORT AND S/S CONTROL IN RE: TO PAIN, ANXIETY, DYSPNEA. NO FURTHER VISITS PLANNED UNLESS REQUESTED PER PT/FAMILY/STAFF/DRS.
--- NOTE | 2019-02-02 18:43 | NUR ---
SHIFT SUMMARY PT A&Ox4. CALM AND COPPERATIVE WITH CARE. PT UP IN CHAIR FOR MAJORITY OF SHIFT. PT SBA TO BATHROOM DUE TO IV POLE. PT SOB WITH EXERTION, PT ON 3L O2 VIA NC, SP02 >90%. CPAP AT NOC. LS DIM T/O. PT DENIES PAIN AND NAUSEA T/O SHIFT. PT ON HEPARIN DRIP, TITRATED DOSE WITH BOLUS PER ORDERS. TELE SB-SR T/O SHIFT. PT RECEIVING IV ANTIBIOTICS. PT RECEIVED A 500cc BOLUS OF NS PER ORDERS. VSS. NO OTHER ACUTE CHANGES DURING SHIFT. REPORT GIVEN TO ONCOMING RN.
[2019-02-02 21:38] LABS: Vancomycin, Trough 18.7 ug/mL (5.0-10.0)
[2019-02-03 05:56] LABS: BASOPHILS ABSOLUTE AUTO 0.05 K/mm3 (0.00-0.23); BASOPHILS PERCENT AUTO 1 % (0-2); EOSINOPHILS PERCENT AUTO 3 % (0-6); Hematocrit 28.2 % (37.0-53.0); Hemoglobin 9.3 g/dL (13.5-17.5); IMMATURE GRAN ABSOLUTE AUTO 0.03 K/mm3 (0.00-0.10); IMMATURE GRAN PERCENT AUTO 0 % (0-1); LYMPHOCYTES ABSOLUTE AUTO 0.99 K/mm3 (0.84-5.20); LYMPHOCYTES PERCENT AUTO 10 % (21-46); MONOCYTES ABSOLUTE AUTO 0.97 K/mm3 (0.16-1.47); MONOCYTES PERCENT AUTO 10 % (4-13); Mean Corpuscular HGB 30.4 pg (26.0-34.0); Mean Corpuscular Volume 92 fL (80-100); Mean Platelet Volume 11.1 fL (9.1-12.4); NEUTROPHILS ABSOLUTE AUTO 7.15 K/mm3 (1.96-9.15); NEUTROPHILS PERCENT AUTO 75 % (41-73); Platelet Count 140 K/mm3 (150-400); RDW Coefficient Variation 14.5 % (11.7-14.2); RDW Standard Deviation 49.1 fL (35.1-46.3); Red Blood Cell Count 3.06 M/mm3 (4.30-5.90); White Blood Cell Count 9.49 K/mm3 (4.00-11.30)
[2019-02-03 06:13] LABS: International Normalized Ratio 2.09; Prothrombin Time Results 20.7 Sec (9.7-11.5)
[2019-02-03 06:20] LABS: Albumin, Blood 2.3 g/dL (3.4-5.0); Albumin/Globulin Ratio 0.7 (0.8-1.8); Bilirubin, Total 0.3 mg/dL (0.1-1.0); Bun/Creatinine Ratio 16.1 (12.0-20.0); Calcium, Blood 7.7 mg/dL (8.5-10.1); Creatinine, Blood 1.37 mg/dL (0.60-1.20); Globulin, Blood 3.3 g/dL (2.2-4.0); Magnesium, Blood 2.4 mg/dL (1.6-2.4); Total Protein, Blood 5.6 g/dL (6.4-8.2)
--- NOTE | 2019-02-03 06:26 | NUR ---
SHIFT SUMMARY PT TO IMAGING FOR CHEST XRAY AT THIS TIME. NO ACUTE CHANGES IN STATUS T/O NIGHT. PT SLEPT WELL AND WORE CPAP T/O NIGHT. RESP EVEN UNLABORED ON CPAP W/ SATS >92%. DENIED CP, DENIED SOB. DENIES OTHER NEEDS. DR FOSTER IN TO SEE PT. POSSIBLE DC THIS MORNING. HEPARIN GTT INFUSING IN PIV, NS TKO IN PICC LINE. CALL LIGHT IN REACH.
--- NOTE | 2019-02-03 08:00 | NUR ---
pt laying in bed awake a/ox3, pleasant and cooperative with care, follows commands well, denies pain, lungs are clear, dim in bases resp even and unlabored, no cough noted, hrr, tele in place running sr per monitor, see strip, hands and feet are a bit puffy, iv to left wrist, picc line to wicho sites are clear and patent, btx4, abd round soft nontender, voids without diff, skin c/w/d, maew, patrice, call light in reach.
[2019-02-03] MEDS ORDERED: Tylenol325 MG PO (10:17)
[2019-02-03] MEDS ORDERED: BISA5EC PO (10:22)
[2019-02-03] MEDS ORDERED: Rocephin 1g1 G/50 ML IV (10:23)
[2019-02-03] MEDS ORDERED: DOCU100 PO (10:25)
[2019-02-03] MEDS ORDERED: LORA1 PO (10:26)
[2019-02-03] MEDS ORDERED: ONDA4ODT PO (10:27)
[2019-02-03] MEDS ORDERED: MIRALAX17 GM PO (10:29)
--- NOTE | 2019-02-03 11:12 | NUR ---
Patient is lying in bed and alert. Patient states that he is in the discharge process but there are complications regarding what insurance will cover for his on-going care as he leaves the hospital. Patient tells me that he is very upset about this and very unsettled. I listen empathically, normalize patient's experience, encourage self-care and provide a calming presence. Patient responds well and shows signs of reduced stress.
--- NOTE | 2019-02-03 13:30 | NUR ---
pt doing ok, getting everything he needs for discharge set up, had a home o2 eval, doesn't need home o2, call light in reach.
[2019-02-03] MEDS ORDERED: Florastor250 MG PO (14:42)
[2019-02-03] MEDS ORDERED: SENN187 PO (14:44)
[2019-02-03] MEDS ORDERED: VANCOMYCIN2 GM/20 ML IV (14:46)
[2019-02-03] MEDS ORDERED: HYDRA25 PO (14:47)
--- NOTE | 2019-02-03 17:47 | NUR ---
pt has been discharged to home. went over medications with his , she manages his meds, they were called into [facility], piv to wrist was removed intact, picc line was left in place for out pt abx. appt made with [facility] clinic. abx were given before discharge, went over follow ups, they verbalize understanding. left via wheelchair with nurse in attendence.
== END 2019-02-03 17:26 | disposition home or self-care (01) | DRG 280 ==
LOC: ER 12:57 → PCU 18:02 → ICUW 18:02 → PCU 22:20 → ICUW 01-29 12:20 → PCU 01-29 13:31
PROVIDERS: Family Medicine; Internal Medicine Cardiovascular Disease; Physician Assistant; ADMIT Internal Medicine
PROC: B24BZZ4 Ultrasonography of Heart with Aorta, Transesophageal (ICD-10-PCS; principal; 2019-01-29)
PROC: 5A09357 Assistance with Respiratory Ventilation, Less than 24 Consecutive Hours, Continuous Positive Airway Pressure (ICD-10-PCS; 2019-02-02)
DX: T82.6XXA Infection and inflammatory reaction due to cardiac valve prosthesis, initial encounter (principal); I21.4 Non-ST elevation (NSTEMI) myocardial infarction; I50.23 Acute on chronic systolic (congestive) heart failure; A41.9 Sepsis, unspecified organism; N17.9 Acute kidney failure, unspecified; I13.0 Hypertensive heart and chronic kidney disease with heart failure and stage 1 through stage 4 chronic kidney disease, or unspecified chronic kidney disease; Z79.01 Long term (current) use of anticoagulants; E78.5 Hyperlipidemia, unspecified; N40.0 Benign prostatic hyperplasia without lower urinary tract symptoms; Z95.2 Presence of prosthetic heart valve; Z87.891 Personal history of nicotine dependence; M72.2 Plantar fascial fibromatosis; G47.33 Obstructive sleep apnea (adult) (pediatric); I27.20 Pulmonary hypertension, unspecified; E66.9 Obesity, unspecified; D69.6 Thrombocytopenia, unspecified; F41.9 Anxiety disorder, unspecified; N18.3 Chronic kidney disease, stage 3 (moderate); I08.2 Rheumatic disorders of both aortic and tricuspid valves; Z68.31 Body mass index [BMI] 31.0-31.9, adult
CPT/HCPCS: 36415; 36569; 71046; 71275; 74175; 80048; 80053; 80202; 81001; 82550; 82553; 82947; 83605; 83735; 83880; 84450; 84460; 84484; 85025; 85610; 85730; 86140; 87040; 87086; 87103; 87804; 93005; 93010; 93312; 93325; 94660; 94761; 94762; 96365-59; 96366; 99285-25; A9270; C1751; C1894; C8929; J0696; J1644; J2250; J3010; J3370; J7030; J7040; J7050; Q9957; Q9967

== ENCOUNTER 2019-02-04 00:31 | Day surgery (SDC) | payer MEDICARE, OTHER ==
[~2019-02-04 00:31] MED LIST changes: +AMLO10 PO; +ATORVASTATIN CA20 MG PO; +BISA5EC PO; +CLOP75 PO; +DOCU100 PO; +FINA5 PO; +FUROSEMIDE20 MG PO; +Flomax0.4 MG PO; +Florastor250 MG PO; +HYDR100 PO; +HYDRA25 PO; +LORA1 PO; +LOSARTAN POTASS50 MG PO; +METO50ER PO; +MIRALAX17 GM PO; +ONDA4ODT PO; +PANT40 PO; +Rocephin 1g1 G/50 ML IV; +SENN187 PO; +Tylenol325 MG PO; +VANCOMYCIN2 GM/20 ML IV; +WARF7.5 PO
== END 2019-02-04 17:38 | disposition home or self-care (01) ==
LOC: ATC 00:31
DX: I38 Endocarditis, valve unspecified (principal); Z79.899 Other long term (current) drug therapy; Z79.01 Long term (current) use of anticoagulants
CPT/HCPCS: 96365; 96366; 96367; J0696; J3370; J7050

== ENCOUNTER 2019-02-05 14:45 | Day surgery (SDC) | payer MEDICARE, OTHER | END 2019-02-05 17:35 | disposition home or self-care (01) | LOC: ATC 14:45 | DX: I38 Endocarditis, valve unspecified (principal); Z79.899 Other long term (current) drug therapy; Z79.01 Long term (current) use of anticoagulants | CPT/HCPCS: 96365; 96366; 96367; J0696; J3370; J7050 ==

== ENCOUNTER 2019-02-06 00:36 | Day surgery (SDC) | payer MEDICARE, OTHER ==
[2019-02-06 15:07] LABS: Creatinine, Blood 1.49 mg/dL (0.60-1.20); Glomerular Filtration Rate 50 (60-); Vancomycin, Trough 18.2 ug/mL (5.0-10.0)
== END 2019-02-06 22:47 | disposition home or self-care (01) ==
LOC: ATC 00:36
PROVIDERS: Internal Medicine
DX: I38 Endocarditis, valve unspecified (principal); Z79.899 Other long term (current) drug therapy; Z79.01 Long term (current) use of anticoagulants
CPT/HCPCS: 80202; 82565; 96365; 96366; 96367; J0696; J3370; J7050

== ENCOUNTER 2019-02-07 00:10 | Day surgery (SDC) | payer MEDICARE, OTHER | END 2019-02-07 22:50 | disposition home or self-care (01) | LOC: ATC 00:10 | DX: I38 Endocarditis, valve unspecified (principal) | CPT/HCPCS: 96365; 96366; 96367; J0696; J3370; J7050 ==

== ENCOUNTER 2019-02-08 00:21 | Day surgery (SDC) | payer MEDICARE, OTHER ==
[2019-02-08 15:40] LABS: BASOPHILS ABSOLUTE AUTO 0.05 K/mm3 (0.00-0.23); BASOPHILS PERCENT AUTO 1 % (0-2); EOSINOPHILS ABSOLUTE AUTO 0.24 K/mm3 (0.00-0.68); EOSINOPHILS PERCENT AUTO 3 % (0-6); Hematocrit 29.7 % (37.0-53.0); Hemoglobin 9.7 g/dL (13.5-17.5); IMMATURE GRAN ABSOLUTE AUTO 0.03 K/mm3 (0.00-0.10); IMMATURE GRAN PERCENT AUTO 0 % (0-1); LYMPHOCYTES ABSOLUTE AUTO 0.82 K/mm3 (0.84-5.20); LYMPHOCYTES PERCENT AUTO 9 % (21-46); MONOCYTES ABSOLUTE AUTO 0.91 K/mm3 (0.16-1.47); MONOCYTES PERCENT AUTO 10 % (4-13); Mean Corpuscular HGB 29.9 pg (26.0-34.0); Mean Corpuscular HGB Conc 32.7 g/dL (31.5-36.5); Mean Corpuscular Volume 92 fL (80-100); Mean Platelet Volume 10.6 fL (9.1-12.4); NEUTROPHILS ABSOLUTE AUTO 7.27 K/mm3 (1.96-9.15); NEUTROPHILS PERCENT AUTO 78 % (41-73); Platelet Count 229 K/mm3 (150-400); RDW Coefficient Variation 14.4 % (11.7-14.2); RDW Standard Deviation 49.1 fL (35.1-46.3); Red Blood Cell Count 3.24 M/mm3 (4.30-5.90); White Blood Cell Count 9.32 K/mm3 (4.00-11.30)
[2019-02-08 16:00] LABS: Albumin, Blood 2.8 g/dL (3.4-5.0); Albumin/Globulin Ratio 0.8 (0.8-1.8); Bilirubin, Total 0.4 mg/dL (0.1-1.0); Calcium, Blood 8.1 mg/dL (8.5-10.1); Creatinine, Blood 1.63 mg/dL (0.60-1.20); Globulin, Blood 3.5 g/dL (2.2-4.0); Potassium, Blood 3.7 mmol/L (3.5-5.5); Total Protein, Blood 6.3 g/dL (6.4-8.2)
== END 2019-02-08 18:33 | disposition home or self-care (01) ==
LOC: ATC 00:21
DX: I38 Endocarditis, valve unspecified (principal)
CPT/HCPCS: 80053; 83880; 85025; 96365; 96366; 96367; 96375; J0696; J1940; J3370; J7050

== ENCOUNTER 2019-02-09 00:21 | Day surgery (SDC) | payer MEDICARE, OTHER | END 2019-02-09 17:50 | disposition home or self-care (01) | LOC: ATC 00:21 | PROVIDERS: Family Medicine | DX: I38 Endocarditis, valve unspecified (principal); I50.9 Heart failure, unspecified | CPT/HCPCS: 71046; 80202; 82565; 96365; 96366; 96367; J0696; J3370; J7050 ==

== ENCOUNTER 2019-02-10 00:21 | Day surgery (SDC) | payer MEDICARE, OTHER ==
[2019-02-10 17:09] LABS: BASOPHILS ABSOLUTE AUTO 0.02 K/mm3 (0.00-0.23); BASOPHILS PERCENT AUTO 0 % (0-2); EOSINOPHILS ABSOLUTE AUTO 0.15 K/mm3 (0.00-0.68); EOSINOPHILS PERCENT AUTO 2 % (0-6); Hematocrit 29.5 % (37.0-53.0); Hemoglobin 9.4 g/dL (13.5-17.5); IMMATURE GRAN ABSOLUTE AUTO 0.03 K/mm3 (0.00-0.10); IMMATURE GRAN PERCENT AUTO 1 % (0-1); LYMPHOCYTES PERCENT AUTO 13 % (21-46); MONOCYTES ABSOLUTE AUTO 0.79 K/mm3 (0.16-1.47); MONOCYTES PERCENT AUTO 13 % (4-13); Mean Corpuscular HGB 29.7 pg (26.0-34.0); Mean Corpuscular HGB Conc 31.9 g/dL (31.5-36.5); Mean Corpuscular Volume 93 fL (80-100); Mean Platelet Volume 11.5 fL (9.1-12.4); NEUTROPHILS ABSOLUTE AUTO 4.45 K/mm3 (1.96-9.15); NEUTROPHILS PERCENT AUTO 71 % (41-73); Platelet Count 206 K/mm3 (150-400); RDW Coefficient Variation 14.5 % (11.7-14.2); RDW Standard Deviation 50.4 fL (35.1-46.3); Red Blood Cell Count 3.17 M/mm3 (4.30-5.90); White Blood Cell Count 6.24 K/mm3 (4.00-11.30)
[2019-02-10 17:23] LABS: Albumin, Blood 2.7 g/dL (3.4-5.0); Anion Gap 6 mmol/L (6-16); Blood Urea Nitrogen 23 mg/dL (8-24); Bun/Creatinine Ratio 12.4 (12.0-20.0); CO2, Blood 24 mmol/L (21-32); Chloride, Blood 108 mmol/L (98-108); Creatinine, Blood 1.85 mg/dL (0.60-1.20); Glomerular Filtration Rate 39 (60-); Glucose, Blood 95 mg/dL (70-99); Phosphorus, Blood 3.8 mg/dL (2.5-4.9); Potassium, Blood 3.8 mmol/L (3.5-5.5); Sodium, Blood 138 mmol/L (136-145)
== END 2019-02-10 17:38 | disposition home or self-care (01) ==
LOC: ATC 00:21
DX: I38 Endocarditis, valve unspecified (principal); Z79.899 Other long term (current) drug therapy; Z79.02 Long term (current) use of antithrombotics/antiplatelets; Z79.01 Long term (current) use of anticoagulants
CPT/HCPCS: 80069; 83735; 85025; 96365; 96366; 96367; 96375; J0696; J1940; J3370; J7050

== ENCOUNTER 2019-02-11 07:30 | Day surgery (SDC) | payer MEDICARE, OTHER | END 2019-02-11 17:12 | disposition home or self-care (01) | LOC: ATC 07:30 | DX: I38 Endocarditis, valve unspecified (principal); I10 Essential (primary) hypertension; Z79.01 Long term (current) use of anticoagulants; Z79.899 Other long term (current) drug therapy; Z95.2 Presence of prosthetic heart valve; Z82.49 Family history of ischemic heart disease and other diseases of the circulatory system | CPT/HCPCS: 96365; 96366; 96367; J0696; J3370; J7050 ==

== ENCOUNTER 2019-02-12 15:33 | Day surgery (SDC) | payer MEDICARE, OTHER ==
[2019-02-12 16:23] LABS: Vancomycin, Trough 23.1 ug/mL (5.0-10.0)
== END 2019-02-12 16:28 | disposition home or self-care (01) ==
LOC: ATC 15:33
DX: I38 Endocarditis, valve unspecified (principal); I10 Essential (primary) hypertension; Z79.899 Other long term (current) drug therapy; Z79.01 Long term (current) use of anticoagulants; Z79.02 Long term (current) use of antithrombotics/antiplatelets; Z87.891 Personal history of nicotine dependence
CPT/HCPCS: 80202; 82565; 96365; J0696

== ENCOUNTER 2019-02-13 14:33 | Day surgery (SDC) | payer MEDICARE, OTHER | END 2019-02-13 17:15 | disposition home or self-care (01) | LOC: ATC 14:33 | DX: I38 Endocarditis, valve unspecified (principal); I10 Essential (primary) hypertension; Z79.899 Other long term (current) drug therapy; Z79.02 Long term (current) use of antithrombotics/antiplatelets; Z79.01 Long term (current) use of anticoagulants; Z87.891 Personal history of nicotine dependence; Z95.2 Presence of prosthetic heart valve; Z98.890 Other specified postprocedural states | CPT/HCPCS: 96365; 96366; 96367; J0696; J3370; J7050 ==

== ENCOUNTER 2019-02-14 08:35 | Day surgery (SDC) | payer MEDICARE, OTHER ==
[2019-02-14 16:32] LABS: Creatinine, Blood 1.66 mg/dL (0.60-1.20); Vancomycin, Trough 15.5 ug/mL (5.0-10.0)
[2019-02-15 16:45] LABS: Glomerular Filtration Rate 44 (60-)
[2019-02-15 17:52] LABS: Alanine Aminotransfer (ALT/SGP 49 U/L (12-78); Alk Phos 61 U/L (50-136); Anion Gap 6 mmol/L (6-16); Aspartate Aminotrans (AST/SGOT 48 U/L (12-37); Bilirubin, Total 0.3 mg/dL (0.1-1.0); Blood Urea Nitrogen 22 mg/dL (8-24); Bun/Creatinine Ratio 13.3 (12.0-20.0); CO2, Blood 23 mmol/L (21-32); Calcium, Blood 8.1 mg/dL (8.5-10.1); Chloride, Blood 113 mmol/L (98-108); Globulin, Blood 3.1 g/dL (2.2-4.0); Glucose, Blood 110 mg/dL (70-99); Potassium, Blood 4.3 mmol/L (3.5-5.5); Sodium, Blood 142 mmol/L (136-145); Total Protein, Blood 6.1 g/dL (6.4-8.2)
== END 2019-02-14 18:36 | disposition home or self-care (01) ==
LOC: ATC 08:35
DX: I38 Endocarditis, valve unspecified (principal); I10 Essential (primary) hypertension; Z79.899 Other long term (current) drug therapy; Z79.01 Long term (current) use of anticoagulants; Z79.02 Long term (current) use of antithrombotics/antiplatelets; Z87.891 Personal history of nicotine dependence; Z95.2 Presence of prosthetic heart valve
CPT/HCPCS: 80053; 80202; 82565; 96365; 96366; 96367; J0696; J3370; J7050

== ENCOUNTER 2019-02-15 00:19 | Day surgery (SDC) | payer MEDICARE, OTHER | END 2019-02-15 22:44 | disposition home or self-care (01) | LOC: ATC 00:19 | DX: I38 Endocarditis, valve unspecified (principal); I10 Essential (primary) hypertension; Z95.2 Presence of prosthetic heart valve; Z79.899 Other long term (current) drug therapy; Z79.01 Long term (current) use of anticoagulants; Z79.02 Long term (current) use of antithrombotics/antiplatelets; Z87.891 Personal history of nicotine dependence | CPT/HCPCS: 96365; 96366; 96367; J0696; J3370; J7050 ==

== ENCOUNTER 2019-02-16 00:08 | Day surgery (SDC) | payer MEDICARE, OTHER | END 2019-02-16 17:20 | disposition home or self-care (01) | LOC: ATC 00:08 | DX: I38 Endocarditis, valve unspecified (principal); I10 Essential (primary) hypertension; Z87.891 Personal history of nicotine dependence; Z95.2 Presence of prosthetic heart valve; Z79.01 Long term (current) use of anticoagulants; Z79.02 Long term (current) use of antithrombotics/antiplatelets; Z79.899 Other long term (current) drug therapy | CPT/HCPCS: 96365; 96366; 96367; J0696; J3370; J7050 ==

== ENCOUNTER 2019-02-17 00:06 | Day surgery (SDC) | payer MEDICARE, OTHER ==
[2019-02-17 15:43] LABS: BASOPHILS ABSOLUTE AUTO 0.06 K/mm3 (0.00-0.23); BASOPHILS PERCENT AUTO 1 % (0-2); EOSINOPHILS ABSOLUTE AUTO 0.46 K/mm3 (0.00-0.68); EOSINOPHILS PERCENT AUTO 7 % (0-6); Hematocrit 28.8 % (37.0-53.0); Hemoglobin 9.5 g/dL (13.5-17.5); IMMATURE GRAN ABSOLUTE AUTO 0.02 K/mm3 (0.00-0.10); IMMATURE GRAN PERCENT AUTO 0 % (0-1); LYMPHOCYTES ABSOLUTE AUTO 0.82 K/mm3 (0.84-5.20); LYMPHOCYTES PERCENT AUTO 12 % (21-46); MONOCYTES ABSOLUTE AUTO 0.63 K/mm3 (0.16-1.47); MONOCYTES PERCENT AUTO 9 % (4-13); Mean Corpuscular HGB 29.7 pg (26.0-34.0); Mean Platelet Volume 11.1 fL (9.1-12.4); NEUTROPHILS ABSOLUTE AUTO 4.87 K/mm3 (1.96-9.15); NEUTROPHILS PERCENT AUTO 71 % (41-73); Platelet Count 159 K/mm3 (150-400); RDW Coefficient Variation 14.2 % (11.7-14.2); RDW Standard Deviation 47.4 fL (35.1-46.3); White Blood Cell Count 6.86 K/mm3 (4.00-11.30)
[2019-02-17 16:04] LABS: Mean Corpuscular Volume 90 fL (80-100)
[2019-02-17 16:07] LABS: Creatinine, Blood 1.56 mg/dL (0.60-1.20); Glomerular Filtration Rate 47 (60-); Vancomycin, Trough 19.7 ug/mL (5.0-10.0)
== END 2019-02-17 18:21 | disposition home or self-care (01) ==
LOC: ATC 00:06
PROVIDERS: Internal Medicine
DX: I38 Endocarditis, valve unspecified (principal); I11.9 Hypertensive heart disease without heart failure; Z95.2 Presence of prosthetic heart valve; Z79.899 Other long term (current) drug therapy; Z79.01 Long term (current) use of anticoagulants; Z79.02 Long term (current) use of antithrombotics/antiplatelets; Z87.891 Personal history of nicotine dependence
CPT/HCPCS: 80202; 82565; 85025; 86140; 96365; 96366; 96367; J0696; J3370; J7050

== ENCOUNTER 2019-02-18 01:12 | Day surgery (SDC) | payer MEDICARE, OTHER | END 2019-02-18 17:27 | disposition home or self-care (01) | LOC: ATC 01:12 | DX: I38 Endocarditis, valve unspecified (principal); I10 Essential (primary) hypertension; Z95.2 Presence of prosthetic heart valve; Z87.891 Personal history of nicotine dependence; Z79.899 Other long term (current) drug therapy; Z79.01 Long term (current) use of anticoagulants; Z79.02 Long term (current) use of antithrombotics/antiplatelets | CPT/HCPCS: 96365; 96366; 96368; J0696; J3370; J7050 ==

== ENCOUNTER 2019-02-19 14:57 | Day surgery (SDC) | payer MEDICARE, OTHER | END 2019-02-19 17:36 | disposition home or self-care (01) | LOC: ATC 14:57 | DX: I38 Endocarditis, valve unspecified (principal); I10 Essential (primary) hypertension; Z95.2 Presence of prosthetic heart valve; Z79.01 Long term (current) use of anticoagulants; Z79.02 Long term (current) use of antithrombotics/antiplatelets; Z79.899 Other long term (current) drug therapy; Z87.891 Personal history of nicotine dependence | CPT/HCPCS: 96365; 96366; 96367; J0696; J3370 ==

== ENCOUNTER 2019-02-20 00:34 | Day surgery (SDC) | payer MEDICARE, OTHER ==
[2019-02-20 15:53] LABS: Vancomycin, Trough 19.6 ug/mL (5.0-10.0)
== END 2019-02-20 17:20 | disposition home or self-care (01) ==
LOC: ATC 00:34
PROVIDERS: Family Medicine
DX: I38 Endocarditis, valve unspecified (principal); Z79.899 Other long term (current) drug therapy; Z79.01 Long term (current) use of anticoagulants; Z79.02 Long term (current) use of antithrombotics/antiplatelets; Z87.891 Personal history of nicotine dependence
CPT/HCPCS: 80202; 82565; 96365; 96366; 96367; J0696; J3370; J7050

== ENCOUNTER 2019-02-21 00:16 | Day surgery (SDC) | payer MEDICARE, OTHER | END 2019-02-21 16:20 | disposition home or self-care (01) | LOC: ATC 00:16 | DX: I38 Endocarditis, valve unspecified (principal); I10 Essential (primary) hypertension; Z79.899 Other long term (current) drug therapy; Z79.01 Long term (current) use of anticoagulants; Z79.02 Long term (current) use of antithrombotics/antiplatelets; Z87.891 Personal history of nicotine dependence | CPT/HCPCS: 96365; 96367; J0696; J3370; J7050 ==

== ENCOUNTER 2019-02-22 00:24 | Day surgery (SDC) | payer MEDICARE, OTHER | END 2019-02-22 16:07 | disposition home or self-care (01) | LOC: ATC 00:24 | DX: I38 Endocarditis, valve unspecified (principal); Z79.899 Other long term (current) drug therapy; Z79.01 Long term (current) use of anticoagulants; Z79.02 Long term (current) use of antithrombotics/antiplatelets; Z87.891 Personal history of nicotine dependence; Z95.2 Presence of prosthetic heart valve | CPT/HCPCS: 96365; 96367; J0696; J3370; J7050 ==

== ENCOUNTER 2019-02-23 00:12 | Day surgery (SDC) | payer MEDICARE, OTHER ==
[2019-02-23 14:52] LABS: BASOPHILS ABSOLUTE AUTO 0.05 K/mm3 (0.00-0.23); BASOPHILS PERCENT AUTO 1 % (0-2); EOSINOPHILS ABSOLUTE AUTO 0.09 K/mm3 (0.00-0.68); EOSINOPHILS PERCENT AUTO 2 % (0-6); Hemoglobin 9.6 g/dL (13.5-17.5); IMMATURE GRAN ABSOLUTE AUTO 0.01 K/mm3 (0.00-0.10); IMMATURE GRAN PERCENT AUTO 0 % (0-1); LYMPHOCYTES ABSOLUTE AUTO 0.81 K/mm3 (0.84-5.20); LYMPHOCYTES PERCENT AUTO 17 % (21-46); MONOCYTES ABSOLUTE AUTO 0.71 K/mm3 (0.16-1.47); MONOCYTES PERCENT AUTO 15 % (4-13); Mean Corpuscular HGB 28.8 pg (26.0-34.0); Mean Corpuscular Volume 90 fL (80-100); NEUTROPHILS ABSOLUTE AUTO 3.18 K/mm3 (1.96-9.15); NEUTROPHILS PERCENT AUTO 66 % (41-73); Platelet Count 151 K/mm3 (150-400); RDW Coefficient Variation 14.4 % (11.7-14.2); RDW Standard Deviation 47.6 fL (35.1-46.3); Red Blood Cell Count 3.33 M/mm3 (4.30-5.90); White Blood Cell Count 4.85 K/mm3 (4.00-11.30)
[2019-02-23 15:28] LABS: Creatinine, Blood 1.55 mg/dL (0.60-1.20); Glomerular Filtration Rate 48 (60-); Vancomycin, Trough 21.4 ug/mL (5.0-10.0)
[2019-02-23 19:53] LABS: Albumin, Blood 3.6 g/dL (3.4-5.0); Albumin/Globulin Ratio 1.2 (0.8-1.8); Bilirubin, Total 0.5 mg/dL (0.1-1.0); Calcium, Blood 9.1 mg/dL (8.5-10.1); Creatinine, Blood 1.58 mg/dL (0.60-1.20); Globulin, Blood 3.1 g/dL (2.2-4.0); Potassium, Blood 4.3 mmol/L (3.5-5.5); Total Protein, Blood 6.7 g/dL (6.4-8.2)
== END 2019-02-23 16:50 | disposition home or self-care (01) ==
LOC: ATC 00:12
PROVIDERS: Internal Medicine
DX: I38 Endocarditis, valve unspecified (principal); N17.9 Acute kidney failure, unspecified; D64.9 Anemia, unspecified; I11.0 Hypertensive heart disease with heart failure; I50.9 Heart failure, unspecified; Z79.01 Long term (current) use of anticoagulants; Z79.899 Other long term (current) drug therapy; Z87.891 Personal history of nicotine dependence; Z79.02 Long term (current) use of antithrombotics/antiplatelets
CPT/HCPCS: 80053; 80202; 82565; 85025; 96365; 96368; J0696; J3370; J7050

== ENCOUNTER 2019-02-24 00:13 | Day surgery (SDC) | payer MEDICARE, OTHER | END 2019-02-24 17:12 | disposition home or self-care (01) | LOC: ATC 00:13 | DX: I38 Endocarditis, valve unspecified (principal); I10 Essential (primary) hypertension; Z95.2 Presence of prosthetic heart valve; Z79.899 Other long term (current) drug therapy; Z79.01 Long term (current) use of anticoagulants; Z79.02 Long term (current) use of antithrombotics/antiplatelets; Z87.891 Personal history of nicotine dependence; I77.89 Other specified disorders of arteries and arterioles; I71.01 Dissection of thoracic aorta; I51.7 Cardiomegaly; I25.10 Atherosclerotic heart disease of native coronary artery without angina pectoris; J90 Pleural effusion, not elsewhere classified; N28.1 Cyst of kidney, acquired; K57.30 Diverticulosis of large intestine without perforation or abscess without bleeding; K44.9 Diaphragmatic hernia without obstruction or gangrene | CPT/HCPCS: 71275; 74175; 93880; 96365; 96367; J0696; J3370; J7050; Q9967 ==

== ENCOUNTER 2019-02-25 00:40 | Day surgery (SDC) | payer MEDICARE, OTHER ==
--- NOTE | 2019-02-25 15:49 | NUR ---
RX WOULD NOT RUN, DIFFICULTY FLUSHING, NO BLOOD DRAW BACK, NOTIFIED, ORDERS FOR CATHFLO RECEIVED. CATHFLO INSERTED AND AGITATED, BLOOD DRAW BACK, 2.2ML DISCARDED FROM CATH YOSSI, FLUSHED LINE WITH NEW CAP, RX PUMP RUNNING NOW.
== END 2019-02-25 17:55 | disposition home or self-care (01) ==
LOC: ATC 00:40
DX: I38 Endocarditis, valve unspecified (principal); I10 Essential (primary) hypertension; Z79.01 Long term (current) use of anticoagulants; Z79.899 Other long term (current) drug therapy; Z79.02 Long term (current) use of antithrombotics/antiplatelets; Z87.891 Personal history of nicotine dependence; Z45.2 Encounter for adjustment and management of vascular access device
CPT/HCPCS: 36593; 96365; 96366; 96367; J0696; J2997; J3370; J7050

== ENCOUNTER 2019-02-26 00:59 | Day surgery (SDC) | payer MEDICARE, OTHER ==
[2019-02-26 15:33] LABS: Creatinine, Blood 1.48 mg/dL (0.60-1.20); Vancomycin, Trough 22.8 ug/mL (5.0-10.0)
== END 2019-02-26 16:58 | disposition home or self-care (01) ==
LOC: ATC 00:59
DX: I38 Endocarditis, valve unspecified (principal); I10 Essential (primary) hypertension; Z95.2 Presence of prosthetic heart valve; Z79.899 Other long term (current) drug therapy; Z79.01 Long term (current) use of anticoagulants; Z79.02 Long term (current) use of antithrombotics/antiplatelets; Z87.891 Personal history of nicotine dependence
CPT/HCPCS: 80202; 82565; 96365; 96367; J0696; J3370

== ENCOUNTER 2019-02-27 00:59 | Day surgery (SDC) | payer MEDICARE, OTHER | END 2019-02-27 22:35 | disposition home or self-care (01) | LOC: ATC 00:59 | DX: I38 Endocarditis, valve unspecified (principal); I10 Essential (primary) hypertension; Z95.2 Presence of prosthetic heart valve; Z79.899 Other long term (current) drug therapy; Z79.01 Long term (current) use of anticoagulants; Z79.02 Long term (current) use of antithrombotics/antiplatelets; Z87.891 Personal history of nicotine dependence | CPT/HCPCS: 96365; 96367; J0696; J3370 ==

== ENCOUNTER 2019-02-28 00:45 | Day surgery (SDC) | payer MEDICARE, OTHER | END 2019-02-28 16:22 | disposition home or self-care (01) | LOC: ATC 00:45 | DX: I38 Endocarditis, valve unspecified (principal); I10 Essential (primary) hypertension; Z79.899 Other long term (current) drug therapy; Z79.01 Long term (current) use of anticoagulants; Z79.02 Long term (current) use of antithrombotics/antiplatelets; Z87.891 Personal history of nicotine dependence; Z95.2 Presence of prosthetic heart valve | CPT/HCPCS: 96365; 96367; J0696; J3370 ==

== ENCOUNTER 2019-03-01 00:09 | Day surgery (SDC) | payer MEDICARE, OTHER ==
[2019-03-01 15:03] LABS: Vancomycin, Trough 16.7 ug/mL (5.0-10.0)
== END 2019-03-01 16:44 | disposition home or self-care (01) ==
LOC: ATC 00:09
PROVIDERS: Family Medicine
DX: I38 Endocarditis, valve unspecified (principal); I10 Essential (primary) hypertension; Z95.2 Presence of prosthetic heart valve; Z79.01 Long term (current) use of anticoagulants; Z79.899 Other long term (current) drug therapy; Z79.02 Long term (current) use of antithrombotics/antiplatelets; Z87.891 Personal history of nicotine dependence
CPT/HCPCS: 80202; 82565; 96365; 96367; J0696; J3370

== ENCOUNTER 2019-03-02 00:34 | Day surgery (SDC) | payer MEDICARE, OTHER | END 2019-03-02 22:52 | disposition home or self-care (01) | LOC: ATC 00:34 | DX: I38 Endocarditis, valve unspecified (principal); I10 Essential (primary) hypertension; Z79.899 Other long term (current) drug therapy; Z79.01 Long term (current) use of anticoagulants; Z95.2 Presence of prosthetic heart valve; Z82.49 Family history of ischemic heart disease and other diseases of the circulatory system; Z87.891 Personal history of nicotine dependence | CPT/HCPCS: 96365; 96367; J0696; J3370 ==

== ENCOUNTER 2019-03-03 00:33 | Day surgery (SDC) | payer MEDICARE, OTHER | END 2019-03-03 16:37 | disposition home or self-care (01) | LOC: ATC 00:33 | DX: I38 Endocarditis, valve unspecified (principal); I10 Essential (primary) hypertension; Z95.2 Presence of prosthetic heart valve; Z79.899 Other long term (current) drug therapy; Z79.01 Long term (current) use of anticoagulants; Z79.02 Long term (current) use of antithrombotics/antiplatelets; Z87.891 Personal history of nicotine dependence | CPT/HCPCS: 96365; 96366; 96367; J0696; J3370 ==

== ENCOUNTER 2019-03-04 00:40 | Day surgery (SDC) | payer MEDICARE, OTHER ==
[2019-03-04 14:40] LABS: BASOPHILS ABSOLUTE AUTO 0.07 K/mm3 (0.00-0.23); BASOPHILS PERCENT AUTO 1 % (0-2); EOSINOPHILS ABSOLUTE AUTO 0.27 K/mm3 (0.00-0.68); EOSINOPHILS PERCENT AUTO 4 % (0-6); Hematocrit 31.2 % (37.0-53.0); Hemoglobin 10.1 g/dL (13.5-17.5); IMMATURE GRAN ABSOLUTE AUTO 0.01 K/mm3 (0.00-0.10); IMMATURE GRAN PERCENT AUTO 0 % (0-1); LYMPHOCYTES ABSOLUTE AUTO 0.88 K/mm3 (0.84-5.20); LYMPHOCYTES PERCENT AUTO 14 % (21-46); MONOCYTES ABSOLUTE AUTO 0.65 K/mm3 (0.16-1.47); MONOCYTES PERCENT AUTO 10 % (4-13); Mean Corpuscular HGB 29.4 pg (26.0-34.0); Mean Corpuscular HGB Conc 32.4 g/dL (31.5-36.5); Mean Corpuscular Volume 91 fL (80-100); Mean Platelet Volume 12.2 fL (9.1-12.4); NEUTROPHILS PERCENT AUTO 71 % (41-73); Platelet Count 134 K/mm3 (150-400); RDW Coefficient Variation 14.2 % (11.7-14.2); RDW Standard Deviation 47.5 fL (35.1-46.3); Red Blood Cell Count 3.44 M/mm3 (4.30-5.90); White Blood Cell Count 6.48 K/mm3 (4.00-11.30)
[2019-03-04 15:08] LABS: Creatinine, Blood 1.52 mg/dL (0.60-1.20); Vancomycin, Trough 16.1 ug/mL (5.0-10.0)
[2019-03-04 15:18] LABS: Albumin, Blood 3.9 g/dL (3.4-5.0); Albumin/Globulin Ratio 1.1 (0.8-1.8); Bilirubin, Total 0.6 mg/dL (0.1-1.0); Bun/Creatinine Ratio 11.4 (12.0-20.0); Calcium, Blood 8.7 mg/dL (8.5-10.1); Creatinine, Blood 1.49 mg/dL (0.60-1.20); Globulin, Blood 3.4 g/dL (2.2-4.0); Potassium, Blood 4.1 mmol/L (3.5-5.5); Total Protein, Blood 7.3 g/dL (6.4-8.2)
== END 2019-03-04 15:57 | disposition home or self-care (01) ==
LOC: ATC 00:40
PROVIDERS: Family Medicine
DX: A41.9 Sepsis, unspecified organism (principal); Z87.891 Personal history of nicotine dependence; I10 Essential (primary) hypertension; Z79.899 Other long term (current) drug therapy
CPT/HCPCS: 80053; 80202; 82565; 85025; 96365; 96375; J0696; J3370

== ENCOUNTER 2019-03-05 14:31 | Day surgery (SDC) | payer MEDICARE, OTHER | END 2019-03-05 16:29 | disposition home or self-care (01) | LOC: ATC 14:31 | DX: A41.9 Sepsis, unspecified organism (principal); I10 Essential (primary) hypertension; Z79.899 Other long term (current) drug therapy; Z87.891 Personal history of nicotine dependence | CPT/HCPCS: 96365; 96367; J0696; J3370 ==

== ENCOUNTER 2019-03-06 14:52 | Day surgery (SDC) | payer MEDICARE, OTHER | END 2019-03-06 16:33 | disposition home or self-care (01) | LOC: ATC 14:52 | DX: A41.9 Sepsis, unspecified organism (principal); Z87.891 Personal history of nicotine dependence; I10 Essential (primary) hypertension; Z79.899 Other long term (current) drug therapy | CPT/HCPCS: 96365; 96367; J0696; J3370 ==

== ENCOUNTER 2019-03-07 00:14 | Day surgery (SDC) | payer MEDICARE, OTHER ==
--- NOTE | 2019-03-07 15:15 | NUR ---
UNABLE TO DRAW LABS FROM PICC LINE AFTER FLUSHING WITH 40 ML OF NS AND HAVING PT COUGH AND REPOSITION ARM SEVERAL TIMES. PERIPHERAL DRAW FROM RH FOR VANCO TROUGH AND CREATININE.
[2019-03-07 15:35] LABS: Creatinine, Blood 1.34 mg/dL (0.60-1.20); Vancomycin, Trough 13.4 ug/mL (5.0-10.0)
== END 2019-03-07 17:20 | disposition home or self-care (01) ==
LOC: ATC 00:14
PROVIDERS: Family Medicine
DX: A41.9 Sepsis, unspecified organism (principal); I38 Endocarditis, valve unspecified; I10 Essential (primary) hypertension; Z79.02 Long term (current) use of antithrombotics/antiplatelets; Z79.01 Long term (current) use of anticoagulants; Z79.899 Other long term (current) drug therapy; Z95.2 Presence of prosthetic heart valve; Z87.891 Personal history of nicotine dependence
CPT/HCPCS: 80202; 82565; 96365; 96367; J0696; J3370; J7050

== ENCOUNTER 2019-03-08 00:05 | Day surgery (SDC) | payer MEDICARE, OTHER | END 2019-03-08 16:50 | disposition home or self-care (01) | LOC: ATC 00:05 | DX: A41.9 Sepsis, unspecified organism (principal); I10 Essential (primary) hypertension; I38 Endocarditis, valve unspecified; Z79.01 Long term (current) use of anticoagulants; Z79.02 Long term (current) use of antithrombotics/antiplatelets; Z79.899 Other long term (current) drug therapy; Z87.891 Personal history of nicotine dependence; Z95.2 Presence of prosthetic heart valve | CPT/HCPCS: 96365; 96368; J0696; J3370; J7050 ==

== ENCOUNTER 2019-03-09 00:01 | Day surgery (SDC) | payer MEDICARE, OTHER | END 2019-03-09 16:00 | disposition home or self-care (01) | LOC: ATC 00:01 | DX: A41.9 Sepsis, unspecified organism (principal); I38 Endocarditis, valve unspecified; I10 Essential (primary) hypertension; Z79.01 Long term (current) use of anticoagulants; Z79.899 Other long term (current) drug therapy; Z79.02 Long term (current) use of antithrombotics/antiplatelets; Z87.891 Personal history of nicotine dependence; Z95.2 Presence of prosthetic heart valve | CPT/HCPCS: 96365; 96367; J0696; J3370; J7050 ==

== ENCOUNTER 2019-03-10 00:26 | Day surgery (SDC) | payer MEDICARE, OTHER ==
[2019-03-10 15:21] LABS: Creatinine, Blood 1.46 mg/dL (0.60-1.20); Vancomycin, Trough 16.1 ug/mL (5.0-10.0)
--- NOTE | 2019-03-10 16:17 | NUR ---
CATH YOSSI WAS PLACED EARLIER, SEE MAR. GOOD BLOOD RETURN, WASTE 5ML AND NEW END CAP PLACED. LINE FLUSHES EASILY.
== END 2019-03-10 17:24 | disposition home or self-care (01) ==
LOC: ATC 00:26
DX: A41.9 Sepsis, unspecified organism (principal); I10 Essential (primary) hypertension; Z45.2 Encounter for adjustment and management of vascular access device; Z79.01 Long term (current) use of anticoagulants; Z79.02 Long term (current) use of antithrombotics/antiplatelets; Z79.899 Other long term (current) drug therapy; Z87.891 Personal history of nicotine dependence; Z95.2 Presence of prosthetic heart valve
CPT/HCPCS: 36415; 36593; 80202; 82565; 96365; 96367; J0696; J2997; J3370; J7050

== ENCOUNTER 2019-03-11 01:11 | Day surgery (SDC) | payer MEDICARE, OTHER | END 2019-03-11 15:32 | disposition home or self-care (01) | LOC: ATC 01:11 | DX: A41.9 Sepsis, unspecified organism (principal); I10 Essential (primary) hypertension; Z79.02 Long term (current) use of antithrombotics/antiplatelets; Z79.01 Long term (current) use of anticoagulants; Z79.899 Other long term (current) drug therapy; Z87.891 Personal history of nicotine dependence | CPT/HCPCS: 96365; 96366; 96367; J0696; J3370; J7050 ==

== ENCOUNTER 2019-03-12 09:56 | Day surgery (SDC) | payer MEDICARE, OTHER ==
--- NOTE | 2019-03-13 10:02 | NUR ---
DO TO ALL ACCOUNTS FOR THE DAY WAS DOUBLE BOOKED AND WRONG F NUMBERS ASSIGNED THIS ANTIBIOTIC WAS STOPPED AT 1154. (ROCEPHIN) VANCO WAS STOPPED AT 1153
== END 2019-03-12 23:29 | disposition home or self-care (01) ==
LOC: ATC 09:56
DX: A41.9 Sepsis, unspecified organism (principal); I10 Essential (primary) hypertension; Z79.02 Long term (current) use of antithrombotics/antiplatelets; Z79.01 Long term (current) use of anticoagulants; Z79.899 Other long term (current) drug therapy; Z87.891 Personal history of nicotine dependence
CPT/HCPCS: 96365; 96367; J0696; J3370; J7050

== ENCOUNTER 2019-03-12 14:32 | Day surgery (SDC) | payer MEDICARE, OTHER | END 2019-03-12 23:29 | disposition home or self-care (01) | LOC: ATC 14:32 | DX: A41.9 Sepsis, unspecified organism (principal); I10 Essential (primary) hypertension; Z95.2 Presence of prosthetic heart valve; Z79.01 Long term (current) use of anticoagulants; Z79.02 Long term (current) use of antithrombotics/antiplatelets; Z79.899 Other long term (current) drug therapy; Z87.891 Personal history of nicotine dependence ==

== ENCOUNTER 2019-03-13 12:47 | Day surgery (SDC) | payer MEDICARE, OTHER ==
[2019-03-13 13:25] LABS: Creatinine, Blood 1.36 mg/dL (0.60-1.20); Glomerular Filtration Rate 55 (60-); Vancomycin, Trough 14.2 ug/mL (5.0-10.0)
== END 2019-03-13 14:39 | disposition home or self-care (01) ==
LOC: ATC 12:47
PROVIDERS: Internal Medicine
DX: A41.9 Sepsis, unspecified organism (principal); I10 Essential (primary) hypertension; I38 Endocarditis, valve unspecified; Z79.899 Other long term (current) drug therapy; Z79.02 Long term (current) use of antithrombotics/antiplatelets; Z87.891 Personal history of nicotine dependence; Z95.2 Presence of prosthetic heart valve; Z79.01 Long term (current) use of anticoagulants
CPT/HCPCS: 80202; 82565; 96365; 96367; J0696; J3370; J7050

== ENCOUNTER 2019-03-17 00:05 | Day surgery (SDC) | payer MEDICARE, OTHER | END 2019-03-17 23:46 | disposition home or self-care (01) | LOC: ATC 00:05 | DX: A41.9 Sepsis, unspecified organism (principal); I10 Essential (primary) hypertension; Z79.01 Long term (current) use of anticoagulants; Z95.2 Presence of prosthetic heart valve; Z79.899 Other long term (current) drug therapy | CPT/HCPCS: 96365; 96367; J0696; J3370; J7050 ==

== ENCOUNTER 2019-04-01 00:46 | Day surgery (SDC) | payer MEDICARE, OTHER | END 2019-04-01 14:02 | disposition home or self-care (01) | LOC: ATC 00:46 | DX: Z45.2 Encounter for adjustment and management of vascular access device (principal); B99.9 Unspecified infectious disease; A41.9 Sepsis, unspecified organism; I10 Essential (primary) hypertension; Z79.01 Long term (current) use of anticoagulants; Z87.891 Personal history of nicotine dependence; Z95.2 Presence of prosthetic heart valve ==

== ENCOUNTER 2019-04-08 05:29 | Day surgery (SDC) | payer MEDICARE, OTHER ==
[2019-04-08] MEDS ORDERED: LOSA50 PO (06:38)
[2019-04-08] MEDS ORDERED: POTA20PAC PO (06:38)
[2019-04-08] MEDS ORDERED: LEVFLO500 PO (06:39)
[2019-04-08] MEDS ORDERED: DOXY100 PO (06:39)
== END 2019-04-08 23:49 | disposition home or self-care (01) ==
LOC: MHTC 05:29
DX: T82.6XXA Infection and inflammatory reaction due to cardiac valve prosthesis, initial encounter (principal); I33.0 Acute and subacute infective endocarditis; B96.89 Other specified bacterial agents as the cause of diseases classified elsewhere; I10 Essential (primary) hypertension; E78.5 Hyperlipidemia, unspecified; Y83.1 Surgical operation with implant of artificial internal device as the cause of abnormal reaction of the patient, or of later complication, without mention of misadventure at the time of the procedure; Z79.01 Long term (current) use of anticoagulants; Z79.899 Other long term (current) drug therapy; Z79.02 Long term (current) use of antithrombotics/antiplatelets
CPT/HCPCS: 93312; 93325; 99152; 99153; J2250; J3010; J7030

== ENCOUNTER 2019-04-13 15:09 | Day surgery (SDC) | payer MEDICARE, OTHER ==
[~2019-04-13 15:09] MED LIST changes: +DOXY100 PO; +LEVFLO500 PO; +LOSA50 PO; +POTA20PAC PO
== END 2019-04-13 15:50 | disposition home or self-care (01) ==
LOC: ATC 15:09
DX: Z45.2 Encounter for adjustment and management of vascular access device (principal); Z95.2 Presence of prosthetic heart valve; Z79.01 Long term (current) use of anticoagulants; Z79.02 Long term (current) use of antithrombotics/antiplatelets; Z79.899 Other long term (current) drug therapy; Z87.891 Personal history of nicotine dependence
CPT/HCPCS: 99211

== ENCOUNTER 2019-04-27 06:04 | Day surgery (SDC) | payer MEDICARE, OTHER ==
[~2019-04-27] VITALS: Ht 180.3 cm; Wt 93.0 kg
[2019-04-27] MEDS ORDERED: THERA-D2000 UNIT PO (06:33)
[2019-04-27] MEDS ORDERED: FERSU300 PO (06:36)
[2019-04-27] MEDS ORDERED: NYSTRITC TOP (06:40)
[2019-04-27] MEDS ORDERED: Amoxicillin500 MG PO (06:40)
--- NOTE | 2019-04-27 08:04 | NUR ---
PT DROWSY POST SHAHZAD, BUT ANSWERING QUESTIONS APPROPRIATELY. PT DENIES PAIN, SOB OR NAUSEA. MONITOR SB 40'S, B/P , SPO2 95% RA.
--- NOTE | 2019-04-27 09:03 | NUR ---
PT DRESSED SELF WITH MIN ASSISTANCE, AMB IN ROOM WITHOUT ISSUE; IV REMOVED-CANNULA INTACT. PT AND RECEIVED DISCHARGE INSTRUCTIONS, MED LIST AND "AFTER CARE" INSTRUCTIONS; VERBALIZED GOOD UNDERSTANDING.
--- NOTE | 2019-04-27 09:05 | NUR ---
PT LEFT FACILITY VIA W/C, CONDITION STABLE.
== END 2019-04-27 22:59 | disposition home or self-care (01) ==
LOC: ORSCMMR 06:04 → MHTC 06:04
DX: T82.6XXD Infection and inflammatory reaction due to cardiac valve prosthesis, subsequent encounter (principal); I10 Essential (primary) hypertension; E78.5 Hyperlipidemia, unspecified; Z87.891 Personal history of nicotine dependence; Z79.899 Other long term (current) drug therapy; Z79.01 Long term (current) use of anticoagulants; Z79.02 Long term (current) use of antithrombotics/antiplatelets
CPT/HCPCS: 93312; 93325; 99152; 99153; J2250; J3010; J7040

== ENCOUNTER 2019-09-15 05:46 | Day surgery (SDC) | payer MEDICARE, OTHER ==
[~2019-09-15] VITALS: Ht 180.3 cm; Wt 102.0 kg
[~2019-09-15 05:46] MED LIST changes: +Amoxicillin500 MG PO; +FERSU300 PO; +NYSTRITC TOP; +THERA-D2000 UNIT PO
--- NOTE | 2019-09-15 08:25 | NUR ---
PT VERBALIZED UNDERSTANDING OF WRITTEN AND VERBAL D/C INST. IV REMOVED. PT TAKEN OUT OF THE HRT CENTER VIA W/C.
== END 2019-09-15 22:41 | disposition home or self-care (01) ==
LOC: MHTC 05:46
DX: I38 Endocarditis, valve unspecified (principal); I10 Essential (primary) hypertension; E78.5 Hyperlipidemia, unspecified; Z79.01 Long term (current) use of anticoagulants; Z79.899 Other long term (current) drug therapy; Z79.02 Long term (current) use of antithrombotics/antiplatelets; Z87.891 Personal history of nicotine dependence
CPT/HCPCS: 93312; 93325; 99152; J2250; J3010; J7030

== ENCOUNTER 2020-05-04 14:09 | Emergency (ER) | payer MEDICARE, OTHER ==
[~2020-05-04] VITALS: Ht 180.3 cm; Wt 99.8 kg
[2020-05-04] MEDS ORDERED: Amoxicillin500 MG PO (14:29)
[2020-05-04] MEDS ORDERED: HYDROCODONE-AC1 EA10 PO (14:32)
[2020-05-04] MEDS ORDERED: ENOX100I SC (14:32)
[2020-05-04 15:00] LABS: BASOPHILS ABSOLUTE AUTO 0.03 K/mm3 (0.00-0.23); BASOPHILS PERCENT AUTO 1 % (0-2); EOSINOPHILS ABSOLUTE AUTO 0.15 K/mm3 (0.00-0.68); EOSINOPHILS PERCENT AUTO 3 % (0-6); Hematocrit 30.4 % (37.0-53.0); Hemoglobin 9.9 g/dL (13.5-17.5); IMMATURE GRAN ABSOLUTE AUTO 0.06 K/mm3 (0.00-0.10); IMMATURE GRAN PERCENT AUTO 1 % (0-1); LYMPHOCYTES ABSOLUTE AUTO 1.17 K/mm3 (0.84-5.20); LYMPHOCYTES PERCENT AUTO 20 % (21-46); MONOCYTES ABSOLUTE AUTO 0.55 K/mm3 (0.16-1.47); MONOCYTES PERCENT AUTO 9 % (4-13); Mean Corpuscular HGB 31.1 pg (26.0-34.0); Mean Corpuscular HGB Conc 32.6 g/dL (31.5-36.5); Mean Corpuscular Volume 96 fL (80-100); Mean Platelet Volume 11.2 fL (9.1-12.4); NEUTROPHILS ABSOLUTE AUTO 3.98 K/mm3 (1.96-9.15); NEUTROPHILS PERCENT AUTO 67 % (41-73); Platelet Count 165 K/mm3 (150-400); RDW Coefficient Variation 14.5 % (11.7-14.2); RDW Standard Deviation 50.1 fL (35.1-46.3); Red Blood Cell Count 3.18 M/mm3 (4.30-5.90); White Blood Cell Count 5.94 K/mm3 (4.00-11.30)
[2020-05-04 15:14] LABS: Alanine Aminotransfer (ALT/SGP 46 U/L (12-78); Albumin, Blood 3.6 g/dL (3.4-5.0); Albumin/Globulin Ratio 1.1 (0.8-1.8); Alk Phos 79 U/L (50-136); Anion Gap 6 mmol/L (6-16); Aspartate Aminotrans (AST/SGOT 35 U/L (12-37); Bilirubin, Total 0.8 mg/dL (0.1-1.0); Blood Urea Nitrogen 16 mg/dL (8-24); Bun/Creatinine Ratio 12.7 (12.0-20.0); CO2, Blood 25 mmol/L (21-32); Calcium, Blood 8.8 mg/dL (8.5-10.1); Chloride, Blood 111 mmol/L (98-108); Creatinine, Blood 1.26 mg/dL (0.60-1.20); Globulin, Blood 3.2 g/dL (2.2-4.0); Glomerular Filtration Rate >60 (60-); Glucose, Blood 119 mg/dL (70-99); Potassium, Blood 4.2 mmol/L (3.5-5.5); Sodium, Blood 142 mmol/L (136-145); Total Protein, Blood 6.8 g/dL (6.4-8.2)
[2020-05-04 15:15] LABS: International Normalized Ratio 1.65; Prothrombin Time Results 17.2 Sec (9.7-11.5)
[2020-05-04 20:52] LABS: Hematocrit 27.2 % (37.0-53.0); Hemoglobin 8.9 g/dL (13.5-17.5)
[2020-05-05 00:48] LABS: Influenza A, PCR Negative (NEGATIVE); Influenza B, PCR Negative (NEGATIVE); Resp Syncytial Virus, PCR Negative (NEGATIVE); SARS-Cov-2 (COVID-19) PCR, MMC Negative (NEGATIVE)
== END 2020-05-05 00:01 | disposition short-term general hospital (02) ==
LOC: ER 14:09
PROVIDERS: Emergency Medicine; Physician Assistant
DX: I97.618 Postprocedural hemorrhage of a circulatory system organ or structure following other circulatory system procedure (principal); I97.638 Postprocedural hematoma of a circulatory system organ or structure following other circulatory system procedure; D64.9 Anemia, unspecified; Y83.8 Other surgical procedures as the cause of abnormal reaction of the patient, or of later complication, without mention of misadventure at the time of the procedure; Z20.828 Contact with and (suspected) exposure to other viral communicable diseases; Z79.01 Long term (current) use of anticoagulants; Z79.02 Long term (current) use of antithrombotics/antiplatelets; Z79.899 Other long term (current) drug therapy; Z87.891 Personal history of nicotine dependence
CPT/HCPCS: 0241U; 36430; 70498; 80053; 85014; 85018; 85025; 85610; 85730; 86850; 86900; 86901; 86923; 93882; 96365-59; 96366; 96375-59; 99285-25; A9270; J2270; J3430; J7030; P9016; Q9967

== ENCOUNTER 2020-06-01 01:09 | Day surgery (SDC) | payer MEDICARE, OTHER ==
[~2020-06-01 01:09] MED LIST changes: +HYDROCODONE-AC1 EA10 PO
== END 2020-06-01 11:21 | disposition home or self-care (01) ==
LOC: WOUND 01:09
DX: S11.90XD Unspecified open wound of unspecified part of neck, subsequent encounter (principal); L92.9 Granulomatous disorder of the skin and subcutaneous tissue, unspecified; I10 Essential (primary) hypertension; G47.30 Sleep apnea, unspecified; Z23 Encounter for immunization; Z95.828 Presence of other vascular implants and grafts; Y83.2 Surgical operation with anastomosis, bypass or graft as the cause of abnormal reaction of the patient, or of later complication, without mention of misadventure at the time of the procedure
CPT/HCPCS: A9270; G0463

== ENCOUNTER 2020-06-08 02:09 | Day surgery (SDC) | payer MEDICARE, OTHER | END 2020-06-08 23:44 | disposition home or self-care (01) | LOC: WOUND 02:09 | DX: T81.31XA Disruption of external operation (surgical) wound, not elsewhere classified, initial encounter (principal); I10 Essential (primary) hypertension; G47.30 Sleep apnea, unspecified; Z79.01 Long term (current) use of anticoagulants; Z79.02 Long term (current) use of antithrombotics/antiplatelets; Z79.899 Other long term (current) drug therapy; Z20.822 Contact with and (suspected) exposure to COVID-19; Y83.8 Other surgical procedures as the cause of abnormal reaction of the patient, or of later complication, without mention of misadventure at the time of the procedure | CPT/HCPCS: A9270 ==

== ENCOUNTER 2020-06-15 00:34 | Day surgery (SDC) | payer MEDICARE, OTHER | END 2020-06-15 22:42 | disposition home or self-care (01) | LOC: WOUND 00:34 | DX: S11.90XD Unspecified open wound of unspecified part of neck, subsequent encounter (principal); X58.XXXD Exposure to other specified factors, subsequent encounter; I10 Essential (primary) hypertension; G47.30 Sleep apnea, unspecified | CPT/HCPCS: G0463 ==

== ENCOUNTER 2020-06-29 02:16 | Day surgery (SDC) | payer MEDICARE, OTHER | END 2020-06-29 23:45 | disposition home or self-care (01) | LOC: WOUND 02:16 | DX: S11.90XD Unspecified open wound of unspecified part of neck, subsequent encounter (principal); I10 Essential (primary) hypertension; G47.30 Sleep apnea, unspecified; X58.XXXD Exposure to other specified factors, subsequent encounter | CPT/HCPCS: A9270 ==

== ENCOUNTER → 2020-12-06 | Outpatient (CLI) | payer MEDICARE, OTHER ==
[2020-12-06 15:37] LABS: Microalb/Creat Ratio UR, Rand 6.05 mg/g (0.000-30.000); Microalbumin, Random Urine 12.1 mg/L (0.000-20.000)
== END | disposition home or self-care (01) ==
LOC: LAB SHORT 11:26 → LAB 11:26
PROVIDERS: Family Medicine
DX: E78.5 Hyperlipidemia, unspecified (principal)
CPT/HCPCS: 82043; 82570

== ENCOUNTER 2021-04-29 04:25 | Day surgery (SDC) | payer MEDICARE, OTHER ==
[~2021-04-29 04:25] MED LIST changes: +FURO20 PO; +METO100 PO; +POTCHL20ER PO
--- NOTE | 2021-04-29 12:35 | NUR ---
PT/INR 1.2
== END 2021-04-29 12:20 | disposition home or self-care (01) ==
LOC: ATC 04:25
DX: Z09 Encounter for follow-up examination after completed treatment for conditions other than malignant neoplasm (principal); Z95.2 Presence of prosthetic heart valve; Z79.01 Long term (current) use of anticoagulants; Z88.5 Allergy status to narcotic agent; Z88.8 Allergy status to other drugs, medicaments and biological substances
CPT/HCPCS: J1650

== ENCOUNTER 2021-04-30 05:54 | Day surgery (SDC) | payer MEDICARE, OTHER | END 2021-04-30 11:30 | disposition home or self-care (01) | LOC: ATC 05:54 | DX: Z51.81 Encounter for therapeutic drug level monitoring (principal); Z95.2 Presence of prosthetic heart valve; Z79.01 Long term (current) use of anticoagulants | CPT/HCPCS: 36416; 96372; J1650 ==

== ENCOUNTER 2021-05-01 01:20 | Day surgery (SDC) | payer MEDICARE, OTHER | END 2021-05-01 11:42 | disposition home or self-care (01) | LOC: LAB 01:20 → ATC 01:20 | DX: Z09 Encounter for follow-up examination after completed treatment for conditions other than malignant neoplasm (principal); Z79.01 Long term (current) use of anticoagulants; Z95.2 Presence of prosthetic heart valve | CPT/HCPCS: J1650 ==

== ENCOUNTER 2021-05-03 03:51 | Emergency (ER) | payer MEDICARE, OTHER ==
[~2021-05-03] VITALS: Ht 180.3 cm; Wt 106.6 kg
[2021-05-03 05:35] LABS: Source, Urine Catheter
[2021-05-03 05:42] LABS: Bilirubin, Urine Neg (Neg); Blood, Urine 4+ (Neg); Glucose Qualitative, Urine Neg (Neg); Ketones, Urine Neg (Neg); Leukocyte Esterase, Urine Neg (Neg); Nitrite, Urine Neg (Neg); Protein, Urine 1+ (Neg); Specific Gravity, Urine 1.015 (1.003-1.022); Urobilinogen, Urine NORM (Normal)
[2021-05-03 06:15] LABS: Appearance, Urine Hazy (Clear); Bacteria Rare /hpf; Color, Urine Yellow (P-Yellow); Squamous Epithelial Cells Rare /hpf (Few); White Blood Cells, Urine Not Seen /hpf (0-5)
== END 2021-05-03 05:36 | disposition home or self-care (01) ==
LOC: ER 03:51
PROVIDERS: Emergency Medicine
DX: R33.9 Retention of urine, unspecified (principal); Z87.891 Personal history of nicotine dependence
CPT/HCPCS: 51702; 51798; 81001; 87086; 99283-25; A9270

== ENCOUNTER 2021-05-04 11:13 | Day surgery (SDC) | payer MEDICARE, OTHER | END 2021-05-04 11:59 | disposition home or self-care (01) | LOC: ATC 11:13 | DX: Z95.2 Presence of prosthetic heart valve (principal); Z79.01 Long term (current) use of anticoagulants | CPT/HCPCS: J1650 ==

== ENCOUNTER 2021-05-05 11:09 | Day surgery (SDC) | payer MEDICARE, OTHER ==
--- NOTE | 2021-05-05 12:14 | NUR ---
INR IS 2.3.
== END 2021-05-05 22:33 | disposition home or self-care (01) ==
LOC: ATC 11:09
DX: Z95.2 Presence of prosthetic heart valve (principal); Z79.01 Long term (current) use of anticoagulants; Z88.5 Allergy status to narcotic agent; Z88.8 Allergy status to other drugs, medicaments and biological substances
CPT/HCPCS: J1650

== ENCOUNTER 2021-05-06 05:14 | Day surgery (SDC) | payer MEDICARE, OTHER | END 2021-05-06 11:37 | disposition home or self-care (01) | LOC: ATC 05:14 | DX: Z95.2 Presence of prosthetic heart valve (principal); Z79.01 Long term (current) use of anticoagulants | CPT/HCPCS: J1650 ==